=== PATIENT | male | born 1965 | race Two or more races ===

== ENCOUNTER 2024-12-25 07:45 | Inpatient (IN) | payer OTHER, MEDICARE, SELFPAY ==
[2024-12-25] VITALS (42 sets, daily range): BP systolic 98–219; BP diastolic 50–161; PULSE 68–114; RESP 12–32; TEMP 36.4–37; O2SAT 87–100; BMI 20.9
[2024-12-25] MEDS: LABETALOL INJ 5 MG/ML VIAL 20 ML 20 MG IVP (07:45)
--- NOTE | 2024-12-25 07:50 | EDNOTE_ITS ---
Neuro Symptoms Deficit-RME/HPI General Chief Complaint: Altered Mental Status Stated Complaint: ALTERED Time Seen by Provider: 12/25/24 07:48 Arrival date/time: 12/25/24 07:45 RME / HPI RME / HPI Narrative: 59 year old male with history of hypertension, diabetes, ESRD on HD T//Tue (last dialyzed 3 days ago Tuesday) presents to the ED BIBA from home for evaluation of altered mental status today. Per medics report, family were woken up by the sound of patient choking this morning. State when they arrived, patient was found laying in bed in a decorticate posture, not answering questions, and a GCS of 9. Evidently at baseline the patient is AOx4, GCS of 15, conversive, and independent in ADLs. Prehospital BS 147, blood pressure 166/94, HR 90s, saturating 98% on room air. Family denies any history of seizures. While in the ED, the patent is unable to provide any additional history due to mental status. Related Data Allergies Allergy/AdvReac Type Severity Reaction Status Date / Time No Known Allergies Allergy Verified 12/25/24 08:45 Review of Systems Review of Systems Systems Reviewed: All systems reviewed, normal except as documented ROS Unobtainable: unobtainable due to mental status Past Medical History Past Medical History CARDIAC: Positive Hypertension; Negative Congestive Heart Failure RESPIRATORY: Negative Chronic Obstructive Pulmonary Disease (COPD) GENITOURINARY: Positive Renal Disease ENDOCRINE: Negative Diabetes Mellitus Type 1 or Diabetes Mellitus Type 2 Social History SMOKING STATUS: Never smoker ED Exam Narrative Physical exam: General exam shows the patient to be confused and somewhat combative. Right pupil is irregular. Patient apparently has had surgery for glaucoma in the past. Head is normocephalic atraumatic. Heart shows tachycardic rate with regular rhythm lungs are clear to auscultation abdomen is nondistended neurologic exam shows the patient to be moving all extremities but very confused. Course Course Course Narrative: 0740: Patient evaluated in ED room 3 44: Stroke alert activated Quality Measures Suspected type of Stroke: Unknown at this time Tenecteplase given: Reason(s) TPA not given: Uncontrolled BP, Unable to determine eligibility and Siezure at onset with post-ictal neuro impairment not given stroke Orders Category Date Time Status Bedside Blood Glucose NOW Care 12/25/24 08:13 Active Manager Philosophy NOW Care 12/25/24 08:13 Active Continuous Pulse Oximetry NOW Care 12/25/24 08:13 Completed EKG (ED ONLY) *Do not use* NOW Care 12/25/24 08:13 Completed In and Out Catheter X1 Care 12/25/24 08:13 Active Insert IV NOW Care 12/25/24 08:13 Active NIH Stroke Scale now Care 12/25/24 08:13 Active NPO NOW Care 12/25/24 08:13 Active Nurse Swallow Screen x1 Care 12/25/24 08:13 Active Consult to Neurology / Tele-Neurology Routine Cons 12/25/24 08:[address] angio stroke protocol Stat Exams 12/25/24 08:[address] stroke protocol Stat Exams 12/25/24 08:02 Completed EKG (ED Only) Stat Exams 12/25/24 08:13 Draft XR chest 1V portable Stat Exams 12/25/24 08:13 Completed B-Type Natriuretic Peptide Stat Lab 12/25/24 09:06 Completed CBC Stat Lab 12/25/24 07:48 Completed Comprehensive Metabolic Panel Stat Lab 12/25/24 09:06 Completed Drug Screen,Urine Stat Lab 12/25/24 08:13 Ordered Magnesium Stat Lab 12/25/24 09:06 Completed Partial Thromboplastin Time Stat Lab 12/25/24 09:06 Completed Prothrombin Time with INR Stat Lab 12/25/24 09:06 Completed Troponin I Stat Lab 12/25/24 09:06 Completed Troponin I Stat Lab 12/25/24 11:35 Completed Urinalysis Stat Lab 12/25/24 08:13 Ordered Urine Culture Stat Lab 12/25/24 08:13 Ordered ALBUTEROL RT 3ml [Proventil Rt 3ml] Med 12/25/24 11:16 Discontinued 10 mg INH X1 ONE Calcium Gluconate 10% Inj Med 12/25/24 11:30 Discontinued 1 gm IV X1 ONE Dextrose 50% Syr [D50w Syringe Abboject] Med 12/25/24 11:16 Discontinued 50 ml IVP X1 ONE Insulin Regular Med 12/25/24 11:16 Discontinued 5 unit IV X1 ONE Labetalol IV [Trandate IV] Med 12/25/24 07:42 Discontinued 100 mg .ROUTE .STK-MED ONE Labetalol IV [Trandate IV] Med 12/25/24 07:48 Discontinued 20 mg IVP X1 ONE Labetalol IV [Trandate IV] Med 12/25/24 12:49 Discontinued 20 mg IVP X1 ONE Ondansetron Inj [Zofran Inj] Med 12/25/24 08:13 Active 4 mg IVP Q4HR PRN Sodium Bicarb 8.4% 50ml Vial* Med 12/25/24 11:16 Discontinued 50 meq IV X1 ONE Vital Signs Vital signs: Vital Signs Pulse Rate 114 H 12/25/24 07:45 Blood Pressure 219/161 H 12/25/24 07:45 Neuro Symptoms / Deficit MDM Narrative MDM Narrative:: I, Reanna Ortega, sammy scribing for and in the presence of Dr. Mosley. Stroke alert was called. Head CT was negative. Patient was moving too much to do the CT angio of the head and neck. Stroke neurology consult was obtained with Dr. Mejia. He does not believe this to be a stroke. He believes it to be a metabolic encephalopathy versus his poorly controlled hypertension. Blood pressure upon arrival was 224/123. Lab work showed the patient be hyperkalemic with a potassium of 7.6. Patient received 10 mg of nebulized albuterol, 1 amp of D50 IV, 5 units of regular insulin IV, 1000 mg of calcium gluconate IV and 1 amp of sodium bicarb IV. Patient received labetalol 20 mg IV to help lower his blood pressure. We were going to give a second dose of labetalol 20 mg IV however the patient's blood pressure started to decrease to approximately 180/100 so it was thought to be prudent to not lower the blood pressure any further at this time. [facility] too unstable for [facility]. [place] case number is [id number]. Patient data External records reviewed:: EMS form Clinical information provided by:: EMS Social determinants that could affect healthcare access:: none Patient has the following chronic illnesses:: hypertension, diabetes, ESRD on HD T//Tue (last dialyzed 3 days ago Tuesday) How is presenting disease/condition affected by chronic disease/condition?: exacerbated by Evaluation data The following diagnostics were reviewed and interpreted by me:: lab results and radiology exam(s) Lab and/or radiology exams considered but not ordered:: None Interpretation Summary: Ordering Physician: Narciso Dean MD Date of Service: 12/25/24 Procedure(s): CT stroke protocol Accession Number(s): [id number] cc: Jewel Caicedo MD; Narciso Dean MD; NO PRIMARY/FAMILY,PHYSICIAN~ Examination: CT brain head without contrast. 2-D sagittal coronal reconstructions Date and time of exam:December 25, 2024, 0806 hours INDICATIONS: Stroke alert, onset focal neurologic deficit today CTDI: vol (mGy):130 DLP: (mGycm):3085 Technique: Multiple CT axial sections of the brain have been obtained, 5 mm slice thickness. Contrast has not been administered. 2-D sagittal, coronal reconstructions have been obtained Low dose protocols were performed. One or more of the following dose reduction techniques were used; automated exposure control, adjustment of the mA and/or KV according to patient size, use of iterative reconstruction technique. Findings: No significant ventricular enlargement. Intra-axial or extra-axial hemorrhage density is not seen. No mass effect or midline shift Basal cisterns are not remarkable. Fourth ventricle is midline. Cranial vault intact. Impression: Negative for acute hemorrhage, mass effect or midline shift Dictated By: Jewel Caicedo MD Signed By: <Electronically signed by Jewel Caicedo MD in OV> 12/25/24 0833 Ordering Physician: Dorothea DURAN)Matias NP Date of Service: 12/25/24 Procedure(s): XR chest 1V portable Accession Number(s): [id number] cc: Matias Piedra NP, NP; Jewel Caicedo MD; NO PRIMARY/FAMILY,PHYSICIAN~ Examination: AP chest single view TECHNIQUE: AP portable supine chest single view Date and time: December 25, 2024 0831 hours INDICATIONS: Stroke alert FINDINGS: Mild heart failure. Mild enlargement cardiac contour Prominent vascular congestion with perihilar edema Pleural fluid along the right lateral thoracic wall Prominent osteopenia IMPRESSION: Mild heart failure Dictated By: Jewel Caicedo MD Signed By: <Electronically signed by Jewel Caicedo MD in OV> 12/25/24 0910 Medications / Prescriptions Medications or Prescriptions considered but not ordered:: None Medication administrations:: Medication Administration History Ondansetron HCl (Ondansetron Inj 2 Mg/Ml Inj 2 Ml) 4 mg IVP Q4HR PRN PRN Reason: NAUSEA OR VOMITING Stop: 01/24/25 08:12 Discontinued Medications Albuterol (Albuterol Rt 2.5 Mg/3 Ml Nebu) 10 mg INH X1 ONE Stop: 12/25/24 11:17 Last Admin: 12/25/24 11:57 Dose: 10 mg Documented By: JOSSE Calcium Gluconate (Calcium Gluconate 10% Inj 1 Gm/10 Ml Vial) 1 gm IV X1 ONE Stop: 12/25/24 11:31 Last Admin: 12/25/24 11:44 Dose: 1 gm Documented By: AMELIA Dextrose (Dextrose 50%-Water Inj 50 Ml Syringe) 50 ml IVP X1 ONE Stop: 12/25/24 11:17 Last Admin: 12/25/24 11:43 Dose: 50 ml Documented By: AMELIA Insulin Human Regular (Insulin Hum Regular 1 Unit/0.01 Ml (Per Unit)) 5 unit IV X1 ONE Stop: 12/25/24 11:17 Last Admin: 12/25/24 11:42 Dose: 5 unit Documented By: AMELIA Co-signed By: LORETTA Labetalol HCl (Labetalol Inj 5 Mg/Ml Vial 20 Ml) 20 mg IVP X1 ONE Stop: 12/25/24 07:49 Last Admin: 12/25/24 07:45 Dose: 20 mg Documented By: LORETTA Labetalol HCl (Labetalol Inj 5 Mg/Ml Vial 20 Ml) Confirm Administered Dose 100 mg .ROUTE .STK-MED ONE Stop: 12/25/24 07:43 Last Admin: 12/25/24 09:17 Dose: Not Given Documented By: LORETTA Non-Admin Reason: Override Medication Labetalol HCl (Labetalol Inj 5 Mg/Ml Vial 20 Ml) 20 mg IVP X1 ONE Stop: 12/25/24 12:50 Sodium Bicarbonate (Sodium Bicarb Inj 8.4% 1 Meq/Ml 50 Ml Vial) 50 meq IV X1 ONE Stop: 12/25/24 11:17 Last Admin: 12/25/24 11:44 Dose: 50 meq Documented By: AMELIA See above Consultations Consultation(s) initiated? (list below): Yes Consultation #1 (Physician, Specialty, Details): I spoke with teleneurologist Dr. Dean. Discussed patients PMHx, HPI, ED course, exam findings, and radiology results. States patient is not a TNK candidate. Recommends admission and CTA head/neck. Time: 08:45 Diagnosis Neuro Differential Diagnosis: subarachnoid hemorrhage, cerebrovascular accident, transient cerebral ischemia and other (seizure) Most likely diagnosis given after review of the tests above:: Hypertensive emergency Admission Indicated Admission indicated?: indicated Admission Request Was there a request for admission?: Yes Admission Attestation Admission request attestation: Discussed case with [] from Hospitalist service regarding admission. Discussed patients ED course, exam findings, labs, and radiology results. The Hospitalist [agrees,declines] to accept the patient for admission. Disposition Plan Disposition Plan: Admit Critical Care Time Critical Care Time Critical Care Time: Yes Total Critical Care Time (min.): 35 Attestation: Critical care time spent in this patient excluding other billable procedures was 35 minutes. Discharge Plan Plan Patient Disposition: Admit Acute Care w/in Hospital Prescriptions/Referrals Referrals: No Primary/Family,Physician [Primary Care Provider] - In 1 week Problem List Clinical Impression: Hypertensive emergency, Encephalopathy, Hyperkalemia, Renal failure Patient/Caregiver Discharge Instructions Print Language: Armenian Stand Alone Forms: [facility] Award Info., Patient Portal Info Letter
--- NOTE | 2024-12-25 08:02 | XR_ITS ---
Examination: CT brain head without contrast. 2-D sagittal coronal reconstructions Date and time of exam:December 25, 2024, 0806 hours INDICATIONS: Stroke alert, onset focal neurologic deficit today CTDI: vol (mGy):130 DLP: (mGycm):3085 Technique: Multiple CT axial sections of the brain have been obtained, 5 mm slice thickness. Contrast has not been administered. 2-D sagittal, coronal reconstructions have been obtained Low dose protocols were performed. One or more of the following dose reduction techniques were used; automated exposure control, adjustment of the mA and/or KV according to patient size, use of iterative reconstruction technique. Findings: No significant ventricular enlargement. Intra-axial or extra-axial hemorrhage density is not seen. No mass effect or midline shift Basal cisterns are not remarkable. Fourth ventricle is midline. Cranial vault intact. Impression: Negative for acute hemorrhage, mass effect or midline shift
--- NOTE | 2024-12-25 08:13 | EKG_ITS ---
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
--- NOTE | 2024-12-25 08:13 | XR_ITS ---
Examination: AP chest single view TECHNIQUE: AP portable supine chest single view Date and time: December 25, 2024 0831 hours INDICATIONS: Stroke alert FINDINGS: Mild heart failure. Mild enlargement cardiac contour Prominent vascular congestion with perihilar edema Pleural fluid along the right lateral thoracic wall Prominent osteopenia IMPRESSION: Mild heart failure
[2024-12-25 08:35] LABS: Basophils # (Auto) 0.1 Thou/mm3 (0.0-0.2); Basophils % (Auto) 1 % (0-2.5); Eosinophils # (Auto) 0.4 Thou/mm3 (0.0-0.5); Eosinophils % (Auto) 4 % (0-10); Hematocrit 39.8 % (41.0-53.0); Hemoglobin 13.2 g/dL (13.5-16.0); Immature Granulocytes Auto 0.03 Thou/mm3 (0.00-0.00); Lymphocytes # (Auto) 1.7 Thou/mm3 (1.0-4.8); Lymphocytes % (Auto) 17 % (10-50); Mean Corpuscular HGB Conc 33.2 g/dl (31.0-37.0); Mean Corpuscular Hemoglobin 33.9 pg (25.0-35.0); Mean Corpuscular Volume 102 fL (80-100); Monocytes # (Auto) 0.6 Thou/mm3 (0.0-0.8); Monocytes % (Auto) 7 % (0-12); Neutrophils # (Auto) 7.0 Thou/mm3 (1.8-7.7); Neutrophils % (Auto) 72 % (37-80); Nucleated Red Blood Cell # 0.00 Thou/mm3 (0.00-0.00); Nucleated Red Blood Cell % 0 /100 WBC (0); Platelet Count 242 Thou/mm3 (140-440); RDW Standard Deviation 52.8 fL (35.1-43.9); Red Blood Count 3.89 Miln/mm3 (4.50-5.90); White Blood Count 9.7 Thou/mm3 (3.8-10.6)
--- NOTE | 2024-12-25 08:55 | PD.TNEURO ---
Tele Neuro Consultation Consultation Date 12/25/24 Consultation Narrative [facility] Tele[facility]urology Consult [facility] Patient Name:???Delmar Hernandez Date of :???1965 Identification Number:??? Date of Service:???12/25/2024 07:48:35 Diagnosis:?G93.49 - Encephalopathy Multifactorial Impression: ?59 year old man with HTN, T2DM, and ESRD on iHD (last session Tuesday) for whom neurology is consulted for evaluation of stroke. LKW 0 yesterday evening. Wake up symptoms at 0717 of altered mental status. Exam currently with diffuse weakness without gaze deviation. He does have an irregularly shaped right pupil that family states is chronic. He is non verbal and not following commands. NIHSS 19. NCCT Head without acute ischemia or hemorrhage. CTA Head and Neck pending - patient currently unable to tolerate scan/unable to sit still enough for scan. OOW for thrombolytics. Overall, I suspect more of a global/diffuse COLORECTAL SURGEON process causing symptoms which can include (in order of likelihood) acute hypertensive encephalopathy, toxic/metabolic encephalopathy, focal seizure with impaired awareness, and multifocal or brainstem ischemic stroke. ? ?Recommendations: ?-q1 vitals/neurochecks ?-BP goal <180/110mmHg for now ?-BG goal <180mg/dL while admitted ?- Aspirin 300mg OH x1 in ED ?-Continue Aspirin 81mg qdaily for now ?-Atorvastatin 40mg qHS for now ?-Check LDL and A1c (goal LDL <70, goal A1c <7) ?-Check CBC, CMP, UA, UDS, EtOH level, ESR, CRP, CXR, COVID, Flu, TSH w/ FT4, B12 (goal >400), Folate, B1, ABG, and NH4. Correct any significant underlying metabolic and/or infectious abnormality identified. ?-Obtain CTA Head and Neck w/ contrast, rEEG, MRI Brain w/o contrast, TTE w/ bubble, and place on telemetry monitoring ?-PT/OT/ST consults, NPO until passes bedside swallow study ?-Neurology follow up recommended ? ? Advanced Imaging: Advanced imaging has been ordered. Results pending. Metrics: Last Known Well: 12/24/2024 21:30:00 Dispatch Time: 12/25/2024 07:48:34 Arrival Time: 12/25/2024 07:45:00 Initial Response Time: 12/25/2024 07:50:31Symptoms: AMS. Initial patient interaction: 12/25/2024 07:50:00 NIHSS Assessment Completed: 12/25/2024 07:55:22Patient is not a candidate for Thrombolytic. Thrombolytic Medical Decision: 12/25/2024 07:55:23Patient was not deemed candidate for Thrombolytic because of following reasons: LKW outside 4.[address] Head: I personally reviewed all the CT images that were available to me and it showed: no hemorrhage or obvious acute ischemia Primary Provider Notified of Diagnostic Impression and Management Plan on: 12/25/2024 08:54:43 History of Present Illness:Patient is a 59 year old Male. Patient was brought by EMS for symptoms of AMS. Delmar Hernandez is a 59 year old man with HTN, T2DM, ESRD on iHD (last session Tuesday) who presents to ED for evaluation of AMS. Symptoms noted on waking this morning (family woke him at 0717). LKW around 2130 yesterday evening. Patient's was woken by patient making a strange sound . She reached out to grab him and noted that he felt really stiff, was sweating a lot , and not responding. EMS was called and patient noted to be diffusely weak, non-verbal, and not following commands. His family endorses that patient has never suffered an episode like this before. He has not suffered any recent illness and there were no recent medication changes. He was acting at his normal neurologic baseline yesterday evening. Past Medical History: ?Hypertension ?Diabetes Mellitus Other PMH:? ESRD on iHD Medications: No Anticoagulant use? No Antiplatelet use Reviewed EMR for current medications Allergies:? Reviewed Social History: Drug Use: No Family History: There is no family history of premature cerebrovascular disease pertinent to this consultation ROS : 14 Points Review of Systems was performed and was negative except mentioned in HPI. Past Surgical History: There Is No Surgical History Contributory To Today?s Visit Examination: BP(235/130),?Pulse(80),?Blood Glucose(147) 1A: Level of Consciousness - Movements to Pain?+ 2 1B: Ask Month and Age - Aphasic?+ 2 1C: Blink Eyes & Squeeze Hands - Performs 0 Tasks?+ 2 2: Test Horizontal Extraocular Movements - Normal?+ 0 3: Test Visual Clark - No Visual Loss?+ 0 4: Test Facial Palsy (Use Grimace if Obtunded) - Normal symmetry?+ 0 5A: Test Left Arm Motor Drift - Some Effort Against Burnside?+ 2 5B: Test Right Arm Motor Drift - Some Effort Against Burnside?+ 2 6A: Test Left Leg Motor Drift - Some Effort Against Burnside?+ 2 6B: Test Right Leg Motor Drift - Some Effort Against Burnside?+ 2 7: Test Limb Ataxia (FNF/Heel-Polanco) - Does Not Understand?+ 0 8: Test Sensation - Normal; No sensory loss?+ 0 9: Test Language/Aphasia - Mute/Global Aphasia: No Usable Speech/Auditory Comprehension?+ 3 10: Test Dysarthria - Mute/Anarthric?+ 2 11: Test Extinction/Inattention - No abnormality?+ 0 NIHSS Score:?19 Pre-Morbid Modified Kiesha Scale:2 Points = Slight disability; unable to carry out all previous activities, but able to look after own affairs without assistance Spoke with :?Dr. Mosley This consult was conducted in real time using interactive audio and video technology. Patient was informed of the technology being used for this visit and agreed to proceed. Patient located in hospital and provider located at home/office setting. Patient is being evaluated for possible acute neurologic impairment and high probability of imminent or life-threatening deterioration. I spent total of 35 minutes providing care to this patient, including time for face to face visit via telemedicine, review of medical records, imaging studies and discussion of findings with providers, the patient and/or family. Dr Narciso Dean [facility] For Inpatient follow-up with [facility] physician please call [facility] at . As we are not an outpatient service for any post hospital discharge needs please contact the hospital for assistance. If you have any questions for the [facility] physicians or need to reconsult for clinical or diagnostic changes please contact us via [facility] at .
[2024-12-25 09:02] LABS: INR 1.0 (0.9-1.3); Partial Thromboplastin Time 25.6 Seconds (22.0-36.0); Prothrombin Time 11.2 Seconds (9.0-12.2)
--- NOTE | 2024-12-25 09:17 | PC.NURSE ---
PT BIBA FROM HOME, PER EMS CALLED DUE TO PT MAKING A CHOKING SOUND. ON SCENE EMS FOUND HIM TO BE ALTERED, GAVE HIM A GCS OF 9. PT IS DIALYSIS PT GOES FOR DIALYSIS TUE/THR/SAT. LIMB ALERT PLACED ON LEFT WRIST. PT IS NON-VERBAL UPON ARRIVVAL, PUPILS UNEQUAL APPEARS RIGHT PUPIL IS LARGER AND UN-REACTIVE. STROKE ALERT WAS CALLED. AND BROTHER-INLAW AT BEDSIDE TO PROVIDE INFORMATION VIA HCIN TECHNICAL PROJECT LEAD. IVP LABETALOL ADMINISTERED. AT BEDSIDE ATTENTIVE TO PT, PT ON 2L O2 VIA NC. PT RESTLESS PULLING ALL MEDICAL EQUIPMENT OFF OF HIMSELF, PUTTING LEGS THROUGH SIDE RAILS, SEIZURE PADS PLACED FOR PTS SAFETY.
[2024-12-25 09:28] LABS: B-Type Natriuretic Peptide 1075 pg/mL (0-100)
[2024-12-25 09:38] LABS: Alanine Aminotransferase 41 U/L (10-49); Albumin, Serum 4.1 gm/dL (3.5-5.0); Albumin/Globulin Ratio 1.3 (1.2-2.2); Alkaline Phosphatase 102 U/L (46-116); Anion Gap 18 (7-16); Aspartate Amino Transferase 60 U/L (0-34); BUN/Creatinine Ratio 6 Ratio (12-20); Bilirubin,Total 0.4 mg/dL (0.3-1.2); Blood Urea Nitrogen 70 mg/dL (9-23); Calcium 9.2 mg/dL (8.3-10.6); Calcium (Corrected) 9.2 mg/dL (8.5-10.1); Carbon Dioxide 21.2 mMol/L (20.0-31.0); Chloride 101 mMol/L (98-107); Estimated Creatinine Clearance 6.5 mL/min (>60); Globulin 3.1 gm/dL (2.3-3.5); Glucose 192 mg/dL (74-106); Magnesium 2.8 mg/dL (1.6-2.6); Osmolality,Calculated 304 (275-295); Sodium 140 mMol/L (136-145); Total Protein 7.2 gm/dL (5.7-8.2); eGFR 5 See Note
[2024-12-25 09:43] LABS: Potassium 7.6 mMol/L (3.4-5.1)
[2024-12-25 09:48] LABS: Creatinine (Component) 11.0 mg/dL (0.6-1.3)
[2024-12-25 09:58] LABS: Troponin I 0.096 ng/mL (0.0-0.045)
--- NOTE | 2024-12-25 10:54 | PC.NURSE ---
PT NOW ABLE TO TELL I LOVE YOU, HIS BIRTHDAY AND HER BIRTHDAY, ABLE TO TRACK YOU WITH HIS EYES. MADE AWARE OF THIS CHANGE. UPDATED BY EMS WHO HAS RETURNED THAT PT HAS HAD CATARACT SURGERY ON RIGHT EYE, THAT IS WHY IT IS DIFFERENT. REMAINS AT BEDSIDE ATTENTIVE TO PT.
[2024-12-25] MEDS: INSULIN HUM REGULAR 1 UNIT/0.01 ML (PER UNIT) 5 UNIT IV ×2 (11:42→21:06)
[2024-12-25] MEDS: DEXTROSE 50%-WATER INJ 50 ML SYRINGE IVP ×2 (11:43→21:01)
[2024-12-25] MEDS: SODIUM BICARB INJ 8.4% 1 mEq/ML 50 ML VIAL 50 MEQ IV (11:44)
[2024-12-25] MEDS: CALCIUM GLUCONATE 10% INJ 1 GM/10 ML VIAL IV (11:44)
[2024-12-25] MEDS: ALBUTEROL RT 2.5 MG/3 ML NEBU 10 MG INH (11:57)
[2024-12-25 12:10] LABS: Troponin I 0.173 ng/mL (0.0-0.045)
--- NOTE | 2024-12-25 12:18 | PC.CC ---
Addendum entered by Linda Nj 12/25/24 13:11: ASW contacted [facility] [phone] and spoke with Sanjuana to ask for the pts AUTH, as he is a [place] pt currently in a non [place] hospital. Silk Screen Repairer was provided AUTH [id number]. Addendum entered by Linda Nj 12/25/24 12:47: Per ER provider, [place] medical provider has made contact with him regarding the pt. See ER providers notes. Original Note: GUME Nj was informed that pt is a [place] pt and ER provider is looking to admit the pt. Per scribjose, pt is not stable to transfer at this point and ER provider is seeking to admit pt. ASW contacted [facility] notification at [phone] and reported that one of their pts is at the ER. After a series of questions asked by Ramez, senior mortgage underwriter was informed that out ER provider will receive a call from one of their medical providers to staff the case. EOC.
--- NOTE | 2024-12-25 14:25 | ESHP_ITS ---
<Statement entered by Cornelius Russo MD - 12/25/24 21:11> Patient seen and examined at bedside, no acute overnight events. I discussed and supervised with the internist physician who took care of this patient. I personally saw and examined the patient. I agree with most of the assessment and plan. Patient presented with AMS, HTN with SBP 220. Received 20 mg labetalol IV, with improvement in mentation and blood pressure. Acute encephalopathy likely due to HTN emergency vs less likely stroke. CT head negative, stroke work up pending. PRN hydralazine ordered. Patient has ESRD, scheduled for dialysis today, noted to have significant hyperkalemia, creatinine elevation. Nephro consulted for urgent hemodialysis. Troponin slightly elevated, possibly demand ischemia, will trend. Plan of care discussed with attending Dr. Avila. Cornelius Russo MD PGY-2 Documentation for date of: 12/25/24 HPI History of Present Illness History of present illness: History stated analysis 59-year-old gentleman with a history of type 2 diabetes on insulin, ESRD on dialysis Tuesday (he missed HD today, pt reports that he makes some urine), who presents to the emergency department with altered mental status. His last known normal is unknown. The patient is visiting family in the area who noted that yesterday fluids normal at dinnertime but this morning he was altered and confused. According to the patient nothing like this has ever happened in the past Patient reportedly takes medications as prescribed. Patient denies any fever or chills chest pain abdominal pain no dysuria no increased frequency of urination no shortness of breath per nephro note: LKAW 12/24 at 21: 30. found patient in bed making choking noises at 7: 17 a.m. Patient was nonresponsive and stiff in all extremities. Paramedics were called, GCS 9, glucose 147, BP 166/94, HR 90, SpO2 98% on room air. BP on arrival to ED 224/123. In the ED patient continued to be unresponsive, given albuterol nebulized 10 mg, 1 amp D50 IV 5 units of regular insulin IV 1000 mg calcium gluconate IV, 1 amp sodium bicarb IV, labetalol 20 mg IV x 1. Stroke alert was called, NIHSS 19, CT head without contrast negative for acute hemorrhage. CTA unable to be obtained due to patient not being able to sit for that long. ED course: BP elevated in ed at 220s, and altered, not responding to questions appropriately Dx * EKG, peaked T waves * BUN elevated, creatinine elevated, potassium elevated * NCHCT; negative for acute hemorrage * pending CTA given pt unable to tolerate length of procedure * consult tele neuology * Tx * albuterol * 1 am d50 IV * 5 unitis regular insulin IV * 1000 mg calcium gluconate, * 1 amp bicarb * IV labetalol 1x 20 mg, with decrease in SBP to 180s Exam Vital Signs Temp Pulse Resp BP Pulse Ox O2 Del Method O2 Flow Rate 98.2 F 80 20 171/94 H 98 Nasal Cannula 2 12/25/24 12:01 12/25/24 12:56 12/25/24 12:01 12/25/24 12:56 12/25/24 12:01 12/25/24 12:01 12/25/24 12:01 Narrative Exam GENERAL: no acute distress, AAO x2 (pt remains confused about why he is in the hospital, comfortably laying in bed HEENT: Head AT/ NC. Mucous membranes moist. one pupil bigger than the other (w hx of surgery to R eye) NECK: Supple, no lymphadenopathy, no carotid bruits. CARDIOVASCULAR: RRR. Normal S1/S2, No m/r/g. No pitting edema of bilateral LEs. RESPIRATORY: CTAB. No wheezing, rhonchi, crackles. GASTROINTESTINAL: Abdomen soft, non tender no palpable masses. Bowel sounds present MUSCULOSKELETAL:? No cyanosis or edema, no visible joint swelling. L arm fistula, palpable thrill wo signs of bleeding NEUROLOGICAL: CN II-XII grossly intact. No focal deficits. Sensation intact, symmetric.pt is confused, one large pupil hx of eye surgery on R know. PSYCHIATRIC: Awake and alert, not agitated, normal mood and affect. SKIN: No obvious rashes, no jaundice, normal turgor. Results: Labs 12/27/24 04:46 12/27/24 04:46 Labs: Short CBC 12/25/24 Range/Units 07:48 WBC 9.7 (3.8-10.6) Thou/mm3 Hgb 13.2 L (13.5-16.0) g/dL Hct 39.8 L (41.0-53.0) % Plt Count 242 (140-440) Thou/mm3 BMP 12/25/24 09:06 Sodium 140 Potassium 7.6 H* Chloride 101 Carbon Dioxide 21.2 BUN 70 H Creatinine 11.0 H* Glucose 192 H Calcium 9.2 Cardiac Enzymes 12/25/24 12/25/24 Range/Units 09:06 11:35 Troponin I 0.096 H* 0.173 H* (0.0-0.045) ng/mL Liver Function 12/25/24 Range/Units 09:06 Total Bilirubin 0.4 (0.3-1.2) mg/dL AST 60 H (0-34) U/L ALT 41 (10-49) U/L Alkaline Phosphatase 102 (46-116) U/L Albumin 4.1 (3.5-5.0) gm/dL Quality Measures Quality Measures stroke Suspected type of Stroke: Unknown at this time Tenecteplase given: Reason(s) Tenecteplase not given: Uncontrolled BP, Unable to determine eligibility and Siezure at onset with post-ictal neuro impairment not given Rehab services: PT evaluation ordered and Speech Language Pathology eval ordered VTE Prophylaxis: pharmaceutical Antithrombotic by day 2:: ordered Statin ordered: <75 y/o high intensity dose Anticoagulation ordered for A-fib or flutter (current or hx): ordered Medications Home Medications and Allergies Home Medications ?Medication ?Instructions ?Recorded ?Confirmed ?Type dorzolamide 22.3 mg-timolol 6.8 ophthalmic (eye) 12/26 History mg/mL eye drops latanoprost 0.005 % eye drops 1 drp Right eye BID 12/1112/27/24 History amlodipine 5 mg tablet 5 mg PO BID 12/27/24 5 History vitamin B complex-vitamin C-folic 1 tab PO QDAY 12/27/24 History acid 0.8 mg tablet (Nephro-Rodolfo) Allergies Allergy/AdvReac Type Severity Reaction Status Date / Time No Known Allergies Allergy Verified 12/25/24 08:45 Visit Medications Ondansetron HCl (Ondansetron Inj 2 Mg/Ml Inj 2 Ml) 4 mg IVP Q4HR PRN PRN Reason: NAUSEA OR VOMITING Stop: 01/24/25 08:12 Discontinued Medications Albuterol (Albuterol Rt 2.5 Mg/3 Ml Nebu) 10 mg INH X1 ONE Stop: 12/25/24 11:17 Last Admin: 12/25/24 11:57 Dose: 10 mg Calcium Gluconate (Calcium Gluconate 10% Inj 1 Gm/10 Ml Vial) 1 gm IV X1 ONE Stop: 12/25/24 11:31 Last Admin: 12/25/24 11:44 Dose: 1 gm Dextrose (Dextrose 50%-Water Inj 50 Ml Syringe) 50 ml IVP X1 ONE Stop: 12/25/24 11:17 Last Admin: 12/25/24 11:43 Dose: 50 ml Insulin Human Regular (Insulin Hum Regular 1 Unit/0.01 Ml (Per Unit)) 5 unit IV X1 ONE Stop: 12/25/24 11:17 Last Admin: 12/25/24 11:42 Dose: 5 unit Labetalol HCl (Labetalol Inj 5 Mg/Ml Vial 20 Ml) 20 mg IVP X1 ONE Stop: 12/25/24 07:49 Last Admin: 12/25/24 07:45 Dose: 20 mg Labetalol HCl (Labetalol Inj 5 Mg/Ml Vial 20 Ml) 20 mg IVP X1 ONE Stop: 12/25/24 12:50 Last Admin: 12/25/24 12:56 Dose: Not Given Sodium Bicarbonate (Sodium Bicarb Inj 8.4% 1 Meq/Ml 50 Ml Vial) 50 meq IV X1 ONE Stop: 12/25/24 11:17 Last Admin: 12/25/24 11:44 Dose: 50 meq Assessment & Plan Plan Mr. Paul is a 59-year-old gentleman with type 2 diabetes on insulin, hypertension, ESRD on dialysis(Tuesday) who has been receiving hemodialysis regularly, who presents to the emergency department for altered mental status found to have hypertensive emergency SBP to the 220s, who is mental status improved post antihypertensives #Acute ischemic Stroke r/o Patient was not deemed a candidate for tPA because last known well was greater than 4.5 hours no focal neurological deficits, no wkness or facial droop, pt doesnt know why he is in the hospital, nor does he remember when he was last normal NIHSS score of 19 Dx * NCHCT-no acute intracranial findings * CTA head neck: Patient unable to tolerate imaging * Brain MRI, follow-up tomorrow * Echo: Normal left ventricular size and function. Estimated EF at 55-60%. Grade I diastolic dysfunction. Normal RV size and systolic function. Mild to moderate MAC. Trace MR and TR.No pericardial effusion. * A1c: 5.2 * TSH: Elevated * Lipid panel, Cholesterol 160, LDL 102, triglycerides 99 * Every 4 hours neuro checks * Telemetry neurology consulted recommends; admission * In-house neurologist consulted: Dr. Miguel, appreciate recs * Consult physical therapy * Consult speech Tx * ASA 81 mg daily * APAP 650 to avoid fevers * Clopidogrel 75 mg daily * Atorvastatin 40 mg at bedtime * APAP 650 mg every 6hrs as needed * Hydralazine 10 mg every 8 hours as needed for SBP greater than 180 * Keep euglycemic * Head a bed 30 degrees * Permissive hypertension in the first 48 hours continue to hold home antihypertensives # Encephalopathy secondary to hypertensive emergency #Hypertensive emergency pts AMS improved after iv labetalol. plan to maintain BP parameters for potetial stroke, see above. Dx - Every 4 hours vital checks - q4 vitals check Tx -One-time labetalol IV push in the ED -permissive htn <180, give hydral # ESRD on hemodialysis (TThSat) #Electrolyte deragement 2/2 missed HD -resolving following emergent HD today #Hyper Kalemia #hyper magn #FIDELIA iso missed HD pt followed by senait, and has been on HD for the past 5 years, Patient's last hemodialysis session on Tuesday, missed today, consulted nephrology for stat HD today, In ED: BUN 70, Cr 11 Dx - daily CMP, mg, phos Tx - emergent HD today -relete electrolytes as needed #elevated troponin- downtrending Dx - troponin q6hr - CMP # Macrocytic anemia Initial hemoglobin 13.2, hematocrit 39.8, MCV 102 Dx - daily cbc Tx - CTM - transfuse if < 7 #HLD - see statin recs above, see acute ischemic workup Dispo: Home, pending PT eval Diet: pending speech Bowel Reg: not indicated VTE ppx: hearin 5000 q12 GI ppx: pantoprazole Code status: full Case discussed with my senior resident Dr. Russo Case discussed with my attending Dr. Margarita Sheffield MD PGY-1 Attending Provider Attestation/Addendum I attest that I was physically present for the evaluation, physical examination, lab and imaging review of the patient with the residents. I discussed the case with the residents and agree with the findings and plans of care as documented above. After examination of the patient and review of the clinical data I feel that this patient needs admission to the hospital for further treatment/evaluation. Terell Avila MD
--- NOTE | 2024-12-25 14:29 | PD.RESCONSUL ---
HPI Data of Consult Primary Care Provider: Physician No Primary/Family Consult Narrative History of present illness: Mr. Hernandez is a 86 y/o male with PMH hypertension, T2DM, ESRD on HD (last hemodialysis session Tuesday, missed HD today on 12/25) who presented to the ED with altered mental status. LKAW 12/24 at 21: 30. found patient in bed making choking noises at 7: 17 a.m. Patient was nonresponsive and stiff in all extremities. Paramedics were called, GCS 9, glucose 147, BP 166/94, HR 90, SpO2 98% on room air. BP on arrival to ED 224/123. In the ED patient continued to be unresponsive, given albuterol nebulized 10 mg, 1 amp D50 IV 5 units of regular insulin IV 1000 mg calcium gluconate IV, 1 amp sodium bicarb IV, labetalol 20 mg IV x 1. Stroke alert was called, NIHSS 19, CT head without contrast negative for acute hemorrhage. CTA unable to be obtained due to patient not being able to sit for that long. Today patient was evaluated at bedside with contributing to history. Patient reports that does not remember waking up this morning or the previous night. He denies headache, acute visual changes nausea, vomiting, abdominal pain. Patient reports that his blood pressure at home is usually normal but can increase to systolic BP 160-170 during which he does have symptoms including headache. He does not remember having headache or other acute symptoms of hypertensive emergency this morning. cc:: cc: Review of Systems Review of Systems Narrative Review of Systems: 14 point review of systems negative other than HPI Exam Vital Signs Temp Pulse Resp BP Pulse Ox O2 Del Method O2 Flow Rate 98.2 F 80 20 171/94 H 98 Nasal Cannula 2 12/25/24 12:01 12/25/24 12:56 12/25/24 12:01 12/25/24 12:56 12/25/24 12:01 12/25/24 12:01 12/25/24 12:01 Narrative Exam General: No acute distress, well nourished Eye: PERRL, EOMI, normal conjunctiva, no scleral icterus HENT: Normocephalic, atraumatic, hearing intact to conversation at normal volume, moist oral mucosa Neck: Supple, non-tender, no JVD, no lymphadenopathy Lungs: Non-labored respirations, symmetric chest rise Heart: Peripheral pulses intact bilaterally Abdomen: Soft, non-tender, non-distended Musculoskeletal: Normal range of motion and strength Skin: Skin is warm, dry, no rashes or lesions. Fistula for HD on left forearm Psychiatric: Cooperative, appropriate mood and affect Neurologic: Mental status: Orientation: AO x 2 Communication: Patient is cooperative and can follow simple instructions Language: Speech fluent, normal rate and volume, comprehension intact Cranial nerves: CN II: Visual muniz intact CN III: R pupil > L pupil size (chronic anisocoria 2/2 glaucoma surgery 5 years ago) CN III, IV, : No gaze deviation, no nystagmus Horizontal pursuit: intact Vertical pursuit: intact Ptosis: none CN V: Facial sensation to light touch intact bilaterally at the forehead, cheeks, and jaw line CN VII: Face symmetric, no facial droop appreciated CN VIII: Able to hear and respond to conversation at normal volume, intact to finger rub CN IX, X: Palate elevation symmetric, uvula midline CN XI: Head turn and shoulder shrug strong, symmetric bilaterally CN XII: Normal tongue protrusion without deviation, no fasciculations Motor: Normal bulk and tone No atrophy No abnormal movements or fasciculations Muscle strength: Shoulder abduction: R 5/5 L 5/5 Elbow flexion: R 5/5 L 5/5 Elbow extension: R 5/5 L 5/5 Hip flexion: R 5/5 L 5/5 Hip extension: R 5/5 L 5/5 Knee flexion: R 5/5 L 5/5 Knee extension: R 5/5 L 5/5 Sensory: RUE: Light touch intact LUE: Light touch intact RLE: Light touch intact LLE: Light touch intact Reflexes: Triceps (C7-8): R 2+ L 2+ Patellae (L3-4): R 2+ L 2+ Cerebellum: RUE: No dysmetria (finger to nose) LUE: No dysmetria (finger to nose) Gait: Normal gait and stride length, normal pivot Results Labs 12/26/24 05:10 12/26/24 05:10 Labs: Short CBC 12/25/24 Range/Units 07:48 WBC 9.7 (3.8-10.6) Thou/mm3 Hgb 13.2 L (13.5-16.0) g/dL Hct 39.8 L (41.0-53.0) % Plt Count 242 (140-440) Thou/mm3 BMP 12/25/24 09:06 Sodium 140 Potassium 7.6 H* Chloride 101 Carbon Dioxide 21.2 BUN 70 H Creatinine 11.0 H* Glucose 192 H Calcium 9.2 Cardiac Enzymes 12/25/24 12/25/24 Range/Units 09:06 11:35 Troponin I 0.096 H* 0.173 H* (0.0-0.045) ng/mL Liver Function 12/25/24 Range/Units 09:06 Total Bilirubin 0.4 (0.3-1.2) mg/dL AST 60 H (0-34) U/L ALT 41 (10-49) U/L Alkaline Phosphatase 102 (46-116) U/L Albumin 4.1 (3.5-5.0) gm/dL Quality Measures Quality Measures stroke Suspected type of Stroke: Unknown at this time Tenecteplase given: Reason(s) Tenecteplase not given: Uncontrolled BP, Unable to determine eligibility and Siezure at onset with post-ictal neuro impairment not given Rehab services: PT evaluation ordered VTE Prophylaxis: not ordered Antithrombotic by day 2:: not indicated (describe) Statin ordered: <75 y/o high intensity dose Anticoagulation ordered for A-fib or flutter (current or hx): not indicated Medications Home Medications and Allergies Allergies Allergy/AdvReac Type Severity Reaction Status Date / Time No Known Allergies Allergy Verified 12/25/24 08:45 Visit Medications Ondansetron HCl (Ondansetron Inj 2 Mg/Ml Inj 2 Ml) 4 mg IVP Q4HR PRN PRN Reason: NAUSEA OR VOMITING Stop: 01/24/25 08:12 Discontinued Medications Albuterol (Albuterol Rt 2.5 Mg/3 Ml Nebu) 10 mg INH X1 ONE Stop: 12/25/24 11:17 Last Admin: 12/25/24 11:57 Dose: 10 mg Calcium Gluconate (Calcium Gluconate 10% Inj 1 Gm/10 Ml Vial) 1 gm IV X1 ONE Stop: 12/25/24 11:31 Last Admin: 12/25/24 11:44 Dose: 1 gm Dextrose (Dextrose 50%-Water Inj 50 Ml Syringe) 50 ml IVP X1 ONE Stop: 12/25/24 11:17 Last Admin: 12/25/24 11:43 Dose: 50 ml Insulin Human Regular (Insulin Hum Regular 1 Unit/0.01 Ml (Per Unit)) 5 unit IV X1 ONE Stop: 12/25/24 11:17 Last Admin: 12/25/24 11:42 Dose: 5 unit Labetalol HCl (Labetalol Inj 5 Mg/Ml Vial 20 Ml) 20 mg IVP X1 ONE Stop: 12/25/24 07:49 Last Admin: 12/25/24 07:45 Dose: 20 mg Labetalol HCl (Labetalol Inj 5 Mg/Ml Vial 20 Ml) 20 mg IVP X1 ONE Stop: 12/25/24 12:50 Last Admin: 12/25/24 12:56 Dose: Not Given Sodium Bicarbonate (Sodium Bicarb Inj 8.4% 1 Meq/Ml 50 Ml Vial) 50 meq IV X1 ONE Stop: 12/25/24 11:17 Last Admin: 12/25/24 11:44 Dose: 50 meq Assessment & Plan Plan # Altered mental status, improved LKW 7/14 at 21: 30 Initial presentation: Unresponsive, GCS 9. Glucose 147. SpO2 98% RA. Initial BP en route to hospital 166/94, BP on arrival 224/123. Managed with labetalol IV Troponin: 0.096 elevated--> 0.173, BNP elevated [address] head without contrast: Negative for acute hemorrhage, midline shift, mass effect. Poor quality CT Unable to get CTA due to patient unable to sit for CT EKG: NSR, heart rate 77, QTc 498 DDx: hypertensive emergency, metabolic encephalopathy (ESRD on HD), Plan: - BP management per primary - labetalol - Pending UA, UDS, TTE - Pending Spot EEG - Pending MRI brain w/o (2/2 ESRD) # Hypertension Plan: - Management per primary # Type 2 diabetes mellitus Plan: - Management per primary # ESRD on hemodialysis Patient's last hemodialysis session on Tuesday In ED: BUN 70, Cr 11 Nephrology on board Plan: - Management per primary, nephrology # Macrocytic anemia Initial hemoglobin 13.2, hematocrit 39.8, MCV 102 Plan: - Management per primary -CTM with daily CBC Plan discussed with Dr. Lamont Schwartz, PGY1 Attending Provider Attestation/Addendum I personally have seen and examined the patient at the bedside and I agreed with the resident's findings, assessment and plan of care. Follow-up with MRI brain. His presentation of altered mental status and elevated blood pressure over 200 systolic: Suggestive of heights of urgent/hypertensive encephalopathy. Symptoms have resolved and the patient is back to baseline without any focal neurological deficit.
--- NOTE | 2024-12-25 15:09 | ECHO_ITS ---
Transthoracic Echo Report Ht (in): 68 Wt (lb): 138 Exam Location: Echo Lab Status: Inpatient [employer] Reverser: Izzy Wells Indications: Procedure Performed: BP: 120 / 72 HR: 72 Technical Quality: Technically difficult study MEASUREMENTS (Male / Female) Normal Values 2D ECHO LV Diastolic Diameter PLAX 4.1 cm 4.2 - 5.9 / 3.9 - 5.3 cm LV Systolic Diameter PLAX 2.8 cm IVS Diastolic Thickness 0.9 cm 0.6 - 1.0 / 0.6 - 0.9 cm LVPW Diastolic Thickness 1.1 cm 0.6 - 1.0 / 0.6 - 0.9 cm LV Relative Wall Thickness 0.5 LV Ejection Fraction MOD BP 49.6 % >= 55 % LV Cardiac Index MOD BP 3034.0 cm?/min?m? LV Ejection Fraction MOD 4C 56.0 % LV Cardiac Index MOD 4C 3171.4 cm?/min?m? LV Ejection Fraction 4C AL 57.1 % LV Cardiac Index 4C AL 3335.0 cm?/min?m? LV Ejection Fraction MOD 2C 45.1 % LV Cardiac Index MOD 2C 2888.4 cm?/min?m? LV Ejection Fraction 2C AL 47.9 % LV Cardiac Index 2C AL 3108.2 cm?/min?m? LA Volume Index 37.8 cm?/m? 16 - 28 cm?/m? M-MODE Aortic Root Diameter MM 2.8 cm LA Systolic Diameter MM 3.5 cm LA Ao Ratio MM 1.3 AV Cusp Separation MM 1.3 cm DOPPLER AV Peak Velocity 143.0 cm/s AV Peak Gradient 8.2 mmHg AV Mean Gradient 4.0 mmHg AV Velocity Time Integral 25.6 cm LVOT Peak Velocity 114.8 cm/s LVOT Peak Gradient 5.3 mmHg LVOT Velocity Time Integral 23.8 cm MV Area PHT 3.6 cm? Mitral E Point Velocity 77.1 cm/s Mitral A Point Velocity 127.0 cm/s Mitral E to A Ratio 0.6 LV E' Lateral Velocity 4.9 cm/s Mitral E to LV E' Lateral Ratio 15.7 LV E' Septal Velocity 3.3 cm/s Mitral E to LV E' Septal Ratio 23.7 PV Peak Velocity 152.0 cm/s PV Peak Gradient 9.2 mmHg FINDINGS Left Ventricle Normal left ventricular size, wall thickness. The ejection fraction is visually estimated at 55 %. There is grade I diastolic dysfunction of the left ventricle (impaired relaxation pattern). Right Ventricle The right ventricle is normal in size and systolic function. Left Atrium The left atrium is normal by two-dimensional, color flow and Doppler imaging with no structural abnormalities, no thrombus formation present. Right Atrium The right atrium is normal by two-dimensional imaging, color flow and Doppler imaging with no structural abnormalities, no thrombus formation present. Atrial Septum The interatrial septum appears normal with no evidence of a shunt. Aorta The aorta is normal by two-dimensional, color flow and Doppler interrogation. Mitral Valve The mitral valve is normal by two-dimensional, color flow and Doppler interrogation. There is no significant mitral valve regurgitation, stenosis or prolapse. Calcification of the mitral valve leaflets. Aortic Valve The aortic valve is trileaflet and normal by two-dimensional, color flow and Doppler interrogation. There is no significant aortic valve regurgitation. Tricuspid Valve The tricuspid valve is normal by two-dimensional, color flow and Doppler interrogation. There is no significant tricuspid valve regurgitation. Pulmonic Valve The pulmonic valve is not well visualized. There is no significant pulmonic valve regurgitation. Vessels The pulmonary artery appears normal. The inferior vena cava pulmonary and hepatic veins appear normal. Pericardium The pericardium is normal by two-dimensional imaging. There is no significant pericardial effusion. CONCLUSIONS Indication: stroke r/o Negative bubble study with no PFO/ASD. Consider SHANNA if clinically high index of suspicion of cardioembolic stroke. Normal left ventricular size and function. Estimated EF at 55-60%. Grade I diastolic dysfunction. Normal RV size and systolic function. Mild to moderate MAC. Trace MR and TR.No pericardial effusion. Job Wheeler (Electronically Signed) Final Date: 25 December 2024 21:34
--- NOTE | 2024-12-25 15:11 | ESCONSULT_ITS ---
HPI Data of Consult Consult date: 12/25/24 Requesting Physician: Terell Avila MD Admitting Provider: Terell Avila MD Attending Provider: Terell Avila MD Primary Care Provider: Physician No Primary/Family Consult Narrative Reason for consult: ESRD, need for emergent HD History of present illness: Delmar Hernandez is 59 yr male with PMH of HTN, ESRD on HD T/TH/Tue, T2DM presenting to [facility] today form home after family noticed him making choking like sound. Stroke workup was initiated upon arrival. LKW 2130 yesterday evening. NIHSS score by neuro tele was 19. At beside, he was AOx3 with no weakness. Nephrology was consulted for emergent HD. 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 States that he does not have much urine output at home and there is positive family history of kidney disease in his mother. She did require hemodialysis. Patient has resistant hypertension on three agents including hydralazine 75 mg TID, amlodipine 5mg BID, lisinopril 20 Mg BID with pressure ranging 150-160 at home. Blood pressure on arrival was 219/161, tachycardia 114, afebrile. Hemoglobin 13.2, MCV 102, sodium 140, hyperkalemia with potassium 7.6, AG 18, BUN 70, creatinine 11.0, GFR 5, glucose 192, calcium 9.2, magnesium 2.8, mildly elevated troponins 0.173, elevated BNP 1075. He does not appear to be fluid overloaded on exam. HD access site through left AV fistula. Fistula site no evidence of bleeding with palpable thrill. He denies any SOB, chest pain, headaches, lower extremity swelling. Nephrology was consulted for emergent HD. cc:: cc: Terell Avila MD Review of Systems Review of Systems Systems Reviewed: All systems reviewed, normal except as documented Exam Vital Signs Temp Pulse Resp BP Pulse Ox O2 Del Method O2 Flow Rate 98.2 F 80 20 171/94 H 98 Nasal Cannula 2 12/25/24 12:01 12/25/24 12:56 12/25/24 12:01 12/25/24 12:56 12/25/24 12:01 12/25/24 12:01 12/25/24 12:01 Narrative Exam General: Middle aged male, No acute distress, cooperative HEENT: NCAT, No JVD noted. Mucosa dry. Pupils are equal and reactive to light bilaterally Cardiovascular: Normal S1 and S2. Regular rate and rhythm. Respiratory: Lungs are clear to auscultation bilaterally. No wheezing or crackles heard. Abdomen: Soft, nontender, not distended, normal bowel sounds. Skin: Warm to touch, dry, no rashes noted Musculoskeletal: No gross injuries. Able to move all 4 extremities. No pitting edema, left AV fistula with palpable thrill Neuro: Alert and oriented x3. No focal neuro deficits. Psych: Normal affect and mood Results Labs 12/25/24 07:48 12/25/24 19:50 Labs: Short CBC 12/25/24 Range/Units 07:48 WBC 9.7 (3.8-10.6) Thou/mm3 Hgb 13.2 L (13.5-16.0) g/dL Hct 39.8 L (41.0-53.0) % Plt Count 242 (140-440) Thou/mm3 BMP 12/25/24 09:06 Sodium 140 Potassium 7.6 H* Chloride 101 Carbon Dioxide 21.2 BUN 70 H Creatinine 11.0 H* Glucose 192 H Calcium 9.2 Cardiac Enzymes 12/25/24 12/25/24 Range/Units 09:06 11:35 Troponin I 0.096 H* 0.173 H* (0.0-0.045) ng/mL Liver Function 12/25/24 Range/Units 09:06 Total Bilirubin 0.4 (0.3-1.2) mg/dL AST 60 H (0-34) U/L ALT 41 (10-49) U/L Alkaline Phosphatase 102 (46-116) U/L Albumin 4.1 (3.5-5.0) gm/dL Quality Measures Quality Measures stroke Suspected type of Stroke: Unknown at this time Tenecteplase given: Reason(s) Tenecteplase not given: Uncontrolled BP, Unable to determine eligibility and Siezure at onset with post-ictal neuro impairment not given Rehab services: Speech Language Pathology eval ordered VTE Prophylaxis: not ordered Antithrombotic by day 2:: not indicated (describe) Statin ordered: not ordered Anticoagulation ordered for A-fib or flutter (current or hx): not indicated Medications Home Medications and Allergies Allergies Allergy/AdvReac Type Severity Reaction Status Date / Time No Known Allergies Allergy Verified 12/25/24 08:45 Visit Medications Ondansetron HCl (Ondansetron Inj 2 Mg/Ml Inj 2 Ml) 4 mg IVP Q4HR PRN PRN Reason: NAUSEA OR VOMITING Stop: 01/24/25 08:12 Discontinued Medications Albuterol (Albuterol Rt 2.5 Mg/3 Ml Nebu) 10 mg INH X1 ONE Stop: 12/25/24 11:17 Last Admin: 12/25/24 11:57 Dose: 10 mg Calcium Gluconate (Calcium Gluconate 10% Inj 1 Gm/10 Ml Vial) 1 gm IV X1 ONE Stop: 12/25/24 11:31 Last Admin: 12/25/24 11:44 Dose: 1 gm Dextrose (Dextrose 50%-Water Inj 50 Ml Syringe) 50 ml IVP X1 ONE Stop: 12/25/24 11:17 Last Admin: 12/25/24 11:43 Dose: 50 ml Epoetin Ryan (Epoetin Ryan-Epbx Inj 10,000 Unit/Ml Vial (Esrd)) 10,000 unit SC X1 ONE Stop: 12/25/24 14:51 Insulin Human Regular (Insulin Hum Regular 1 Unit/0.01 Ml (Per Unit)) 5 unit IV X1 ONE Stop: 12/25/24 11:17 Last Admin: 12/25/24 11:42 Dose: 5 unit Labetalol HCl (Labetalol Inj 5 Mg/Ml Vial 20 Ml) 20 mg IVP X1 ONE Stop: 12/25/24 07:49 Last Admin: 12/25/24 07:45 Dose: 20 mg Labetalol HCl (Labetalol Inj 5 Mg/Ml Vial 20 Ml) 20 mg IVP X1 ONE Stop: 12/25/24 12:50 Last Admin: 12/25/24 12:56 Dose: Not Given Sodium Bicarbonate (Sodium Bicarb Inj 8.4% 1 Meq/Ml 50 Ml Vial) 50 meq IV X1 ONE Stop: 12/25/24 11:17 Last Admin: 12/25/24 11:44 Dose: 50 meq Assessment & Plan Plan Delmar Hernandez is 59 yr male with PMH of HTN, ESRD on HD T//Tue, T2DM presenting to [facility] ED today form home after family noticed him making choking like sound. Stroke workup was initiated upon arrival. LKW 2130 yesterday evening. NIHSS score by neuro tele was 19. Nephrology was consulted for emergent HD. 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 Patient visiting his family. Most likely hypertensive nephropathy but patient has denied getting biopsy in the past. Patient has resistant hypertension on three agents including hydralazine 75 mg TID, amlodipine 5mg BID, lisinopril 20 Mg BID with pressure ranging 150-160 at home. Hemoglobin 13.2, MCV 102, sodium 140, hyperkalemia with potassium 7.6, AG 18, BUN 70, creatinine 11.0, GFR 5, glucose 192, calcium 9.2, magnesium 2.8 BP on admission 219/161. -start emergent HD -renally dose medications -renal diet -daily CMP #Work up acute CVA #T2DM -per primary care team The patient's management plan was discussed with my attending physician Dr. Coello. Theresa Stoner, PGY-2 Attending Provider Attestation/Addendum Patient seen and examined with resident physician Dr. Stoner. Note reviewed, agree with findings and recommendations. Patient visiting his family. From out of town. On dialysis for the last 5 years. He is a TTS schedule patient. Patient currently seen on dialysis. Tolerating dialysis without any problems. Hemodialysis for 3 hours, 2K, ultrafiltration 2-3 L, Epogen 6000, no heparin ordered. Plan of care discussed with the dialysis nurse. Please see dialysis flowsheet for further details. Thank you Terell for allowing me to participate in the care of Mr. Hernandez
[2024-12-25 15:30] LABS: Glucose Estimated Average 103 mg/dL (80-131); Hemoglobin A1C 5.2 % Hgb (4.8-6.0)
[2024-12-25 15:34] LABS: Cardiac Risk Estimate 4.2 RATIO (4.0-6.7); Cholesterol 160 mg/dL (132-200); HDL Cholesterol 38 mg/dL (40-60); LDL Cholesterol,Calculated 102 mg/dL (0-130); Thyroid Stimulating Hormone 5.67 uIU/mL (0.55-4.78); Triglycerides 99 mg/dL (30-150)
[2024-12-25 17:59] LABS: Troponin I 0.361 ng/mL (0.0-0.045)
--- NOTE | 2024-12-25 18:24 | PC.NURSE ---
Pt continues in dialysis at this time. Lab notified of critical lab of troponins at 0.361 Md Ramírez notified per MD will continue with a next draw for trop at [id number]
--- NOTE | 2024-12-25 18:55 | PC.NURSE ---
Pt arrived from dialysis at change of shift report given to Prisca GROVE to continue plan of care.
[2024-12-25] MEDS: HEPARIN SOD INJ 5000 UNIT/ML VIAL SC (20:15)
[2024-12-25 20:25] LABS: Anion Gap 15 (7-16); BUN/Creatinine Ratio 5 Ratio (12-20); Blood Urea Nitrogen 37 mg/dL (9-23); Calcium 9.7 mg/dL (8.3-10.6); Carbon Dioxide 25.6 mMol/L (20.0-31.0); Chloride 98 mMol/L (98-107); Estimated Creatinine Clearance 10.5 mL/min (>60); Glucose 109 mg/dL (74-106); Osmolality,Calculated 287 (275-295); Potassium 5.8 mMol/L (3.4-5.1); Sodium 139 mMol/L (136-145); eGFR 9 See Note
[2024-12-25 20:27] LABS: Creatinine (Component) 6.8 mg/dL (0.6-1.3)
[2024-12-25 23:32] LABS: Troponin I 0.262 ng/mL (0.0-0.045)
[2024-12-26] VITALS (22 sets, daily range): BP systolic 88–201; BP diastolic 59–109; PULSE 7–88; RESP 11–20; TEMP 36.2–37.1; O2SAT 94–99; BMI 21.7
--- NOTE | 2024-12-26 | XR_ITS ---
Examinations: MRI Brain without intravenous contrast. MRA brain without intravenous contrast. MRA carotids without intravenous contrast 3-D vascular reconstructions Date and time of exam: December 26, 2024 0828 hours INDICATIONS: CT stroke alert December 25, 2024, onset focal neurologic deficit Technique: Multiple axial and sagittal images of the brain have been obtained MRA brain carotid images without contrast obtained, including 3-D postprocessing, vascular maximum intensity projection images Findings: [place] is not enlarged. The optic chiasm and infundibular stalk are not remarkable. Prepontine and interpeduncular cisterns are not enlarged. No localized enlargement of the medulla or yasmani. Fourth ventricle and cerebellar tonsils normal in position. Subacute hemorrhage is not seen. Fourth ventricle is midline. Mass in the cerebellopontine angle region is not evident. 7th and 8th nerve complexes exhibits symmetry. Globes are symmetrical with no retro-orbital mass. Increased white matter signal mild Diffusion-weighted images demonstrate no focus of restricted diffusion Mass-effect upon the ventricular system is not identified. MRA carotid images no critical carotid stenoses. MRA brain images no large vessel occlusions Impression: Negative for acute hemorrhage mass effect or midline shift No acute infarct No cerebral large vessel arterial occlusions
[2024-12-26 01:22] LABS: Anion Gap 14 (7-16); BUN/Creatinine Ratio 4 Ratio (12-20); Blood Urea Nitrogen 31 mg/dL (9-23); Calcium 9.2 mg/dL (8.3-10.6); Carbon Dioxide 24.5 mMol/L (20.0-31.0); Chloride 100 mMol/L (98-107); Creatinine (Component) 7.6 mg/dL (0.6-1.3); Estimated Creatinine Clearance 9.4 mL/min (>60); Glucose 108 mg/dL (74-106); Osmolality,Calculated 283 (275-295); Sodium 138 mMol/L (136-145); eGFR 8 See Note
[2024-12-26 01:25] LABS: Potassium 6.3 mMol/L (3.4-5.1)
[2024-12-26] MEDS: DEXTROSE 50%-WATER INJ 50 ML SYRINGE IVP (02:32)
[2024-12-26] MEDS: INSULIN HUM REGULAR 1 UNIT/0.01 ML (PER UNIT) 10 UNIT IV (02:33)
[2024-12-26] MEDS: ALBUTEROL RT 2.5 MG/3 ML NEBU INH (03:06)
[2024-12-26 06:07] LABS: Basophils # (Auto) 0.0 Thou/mm3 (0.0-0.2); Basophils % (Auto) 1 % (0-2.5); Eosinophils # (Auto) 0.1 Thou/mm3 (0.0-0.5); Eosinophils % (Auto) 2 % (0-10); Hematocrit 31.8 % (41.0-53.0); Hemoglobin 10.5 g/dL (13.5-16.0); Immature Granulocytes Auto 0.01 Thou/mm3 (0.00-0.00); Lymphocytes # (Auto) 0.6 Thou/mm3 (1.0-4.8); Lymphocytes % (Auto) 10 % (10-50); Mean Corpuscular HGB Conc 33.0 g/dl (31.0-37.0); Mean Corpuscular Hemoglobin 33.4 pg (25.0-35.0); Mean Corpuscular Volume 101 fL (80-100); Monocytes # (Auto) 0.6 Thou/mm3 (0.0-0.8); Monocytes % (Auto) 10 % (0-12); Neutrophils # (Auto) 4.7 Thou/mm3 (1.8-7.7); Neutrophils % (Auto) 77 % (37-80); Nucleated Red Blood Cell # 0.00 Thou/mm3 (0.00-0.00); Nucleated Red Blood Cell % 0 /100 WBC (0); Platelet Count 174 Thou/mm3 (140-440); RDW Standard Deviation 52.0 fL (35.1-43.9); Red Blood Count 3.14 Miln/mm3 (4.50-5.90); White Blood Count 6.1 Thou/mm3 (3.8-10.6)
[2024-12-26 06:42] LABS: Alanine Aminotransferase 28 U/L (10-49); Albumin, Serum 3.8 gm/dL (3.5-5.0); Albumin/Globulin Ratio 1.2 (1.2-2.2); Alkaline Phosphatase 84 U/L (46-116); Anion Gap 14 (7-16); Aspartate Amino Transferase 33 U/L (0-34); BUN/Creatinine Ratio 5 Ratio (12-20); Bilirubin,Total 0.6 mg/dL (0.3-1.2); Blood Urea Nitrogen 41 mg/dL (9-23); Calcium 9.4 mg/dL (8.3-10.6); Calcium (Corrected) 9.6 mg/dL (8.5-10.1); Carbon Dioxide 26.6 mMol/L (20.0-31.0); Chloride 100 mMol/L (98-107); Creatinine (Component) 8.2 mg/dL (0.6-1.3); Estimated Creatinine Clearance 9.0 mL/min (>60); Globulin 3.1 gm/dL (2.3-3.5); Glucose 76 mg/dL (74-106); Magnesium 2.3 mg/dL (1.6-2.6); Osmolality,Calculated 290 (275-295); Phosphorous 7.8 mg/dL (2.4-5.1); Potassium 5.9 mMol/L (3.4-5.1); Sodium 141 mMol/L (136-145); Total Protein 6.9 gm/dL (5.7-8.2); eGFR 7 See Note
--- NOTE | 2024-12-26 07:38 | ESPR_ITS ---
<Statement entered by Cornelius Russo MD - 12/26/24 18:28> Patient seen and examined at bedside, no acute overnight events. I discussed and supervised with the jewelry internship physician who took care of this patient. I personally saw and examined the patient. I agree with most of the assessment and plan. Patient doing well subjectively. No focal neurological deficit, currently at cognitive baseline. Received additional round of dialysis today, had some hypotension during session. BP otherwise mildly elevated, HTN emergency resolved. Will continue to monitor BP, adjust medications for better control. Plan of care discussed with attending Dr. Avila. Cornelius Russo MD PGY-2 Documentation for date of: 12/26/24 Subjective Subjective Interval history: No acute events overnight Stroke imaging workup negative, echo with normal ejection fraction no PE or no ASD PT evaluated signed off no need for further PT Exam Vital Signs Temp Pulse Resp BP Pulse Ox O2 Del Method O2 Flow Rate 97.7 F 80 18 132/69 H 94 L Nasal Cannula 2 12/26/24 04:00 12/26/24 06:00 12/26/24 04:00 12/26/24 04:00 12/26/24 04:00 12/25/24 12:01 12/25/24 12:01 24-hour vital signs reviewed Afebrile blood pressure has been labile soft at times elevated at others Satting well on room air Narrative Exam GENERAL: no acute distress, AAO x3, comfortably laying in bed HEENT: Head AT/ NC. Mucous membranes moist. one pupil bigger than the other (w hx of surgery to R eye) NECK: Supple, no lymphadenopathy, no carotid bruits. CARDIOVASCULAR: RRR. Normal S1/S2, No m/r/g. No pitting edema of bilateral LEs. RESPIRATORY: CTAB. No wheezing, rhonchi, crackles. GASTROINTESTINAL: Abdomen soft, non tender no palpable masses. Bowel sounds present MUSCULOSKELETAL:? No cyanosis or edema, no visible joint swelling. L arm fistula, palpable thrill wo signs of bleeding NEUROLOGICAL: CN II-XII grossly intact. No focal deficits. Sensation intact, symmetric.pt is confused, one large pupil hx of eye surgery on R know. Gait observed PSYCHIATRIC: Awake and alert, not agitated, normal mood and affect. SKIN: No obvious rashes, no jaundice, normal turgor. Objective Labs 12/27/24 04:46 12/27/24 04:46 Labs: Laboratory Results - last 24 hr 12/25/24 12/25/24 12/25/24 07:48 09:06 11:35 WBC 9.7 RBC 3.89 L Hgb 13.2 L Hct 39.8 L MCV 102 H MCH 33.9 MCHC 33.2 RDW Std Deviation 52.8 H Plt Count 242 Neut % (Auto) 72 Lymph % (Auto) 17 [place] % (Auto) 7 Eos % (Auto) 4 Baso % (Auto) 1 Neut # (Auto) 7.0 Lymph # (Auto) 1.7 [place] # (Auto) 0.6 Eos # (Auto) 0.4 Baso # (Auto) 0.1 Immature Gran # (Auto) 0.03 H Absolute Nucleated RBC 0.00 Immature Gran % 0 Nucleated RBC % 0 PT 11.2 INR 1.0 APTT 25.6 Sodium 140 Potassium 7.6 H* Chloride 101 Carbon Dioxide 21.2 Anion Gap 18 H BUN 70 H Creatinine 11.0 H* Estim Creat Clear Calc 6.5 L eGFR 5 L* BUN/Creatinine Ratio 6 L Glucose [address] Glu mg/dL 103 Hemoglobin A1c 5.2 Calculated Osmolality 304 H Calcium 9.2 Corrected Calcium 9.2 Phosphorus Magnesium 2.8 H Total Bilirubin 0.4 AST 60 H ALT 41 Alkaline Phosphatase 102 Troponin I 0.096 H* 0.173 H* B-Natriuretic Peptide 1075 H* Total Protein 7.2 Albumin 4.1 Globulin 3.1 Albumin/Globulin Ratio 1.3 Triglycerides 99 Cholesterol 160 LDL Cholesterol, Calc 102 HDL Cholesterol 38 L Cholesterol/HDL Ratio 4.2 TSH 5.67 H 12/25/24 12/25/24 12/25/24 16:42 19:50 22:28 WBC RBC Hgb Hct MCV MCH MCHC RDW Std Deviation Plt Count Neut % (Auto) Lymph % (Auto) [place] % (Auto) Eos % (Auto) Baso % (Auto) Neut # (Auto) Lymph # (Auto) [place] # (Auto) Eos # (Auto) Baso # (Auto) Immature Gran # (Auto) Absolute Nucleated RBC Immature Gran % Nucleated RBC % PT INR APTT Sodium 139 Potassium 5.8 H D Chloride 98 Carbon Dioxide 25.6 Anion Gap 15 BUN 37 H Creatinine 6.8 H* D Estim Creat Clear Calc 10.5 L eGFR 9 L* BUN/Creatinine Ratio 5 L Glucose [address] Glu mg/dL Hemoglobin A1c Calculated Osmolality 287 Calcium 9.7 Corrected Calcium Phosphorus Magnesium Total Bilirubin AST ALT Alkaline Phosphatase Troponin I 0.361 H* 0.262 H* B-Natriuretic Peptide Total Protein Albumin Globulin Albumin/Globulin Ratio Triglycerides Cholesterol LDL Cholesterol, Calc HDL Cholesterol Cholesterol/HDL Ratio TSH 12/26/24 12/26/24 00:35 05:10 WBC 6.1 RBC 3.14 L Hgb 10.5 L D Hct 31.8 L MCV 101 H MCH 33.4 MCHC 33.0 RDW Std Deviation 52.0 H Plt Count 174 D Neut % (Auto) 77 Lymph % (Auto) 10 [place] % (Auto) 10 Eos % (Auto) 2 Baso % (Auto) 1 Neut # (Auto) 4.7 Lymph # (Auto) 0.6 L [place] # (Auto) 0.6 Eos # (Auto) 0.1 Baso # (Auto) 0.0 Immature Gran # (Auto) 0.01 H Absolute Nucleated RBC 0.00 Immature Gran % 0 Nucleated RBC % 0 PT INR APTT Sodium 138 141 Potassium 6.3 H* D 5.9 H Chloride 100 100 Carbon Dioxide 24.5 26.6 Anion Gap 14 14 BUN 31 H 41 H Creatinine 7.6 H* D 8.2 H* D Estim Creat Clear Calc 9.4 L 9.0 L eGFR 8 L* 7 L* BUN/Creatinine Ratio 4 L 5 L Glucose [address] Glu mg/dL Hemoglobin A1c Calculated Osmolality 283 290 Calcium 9.2 9.4 Corrected Calcium 9.6 Phosphorus 7.8 H Magnesium 2.3 Total Bilirubin 0.6 AST 33 ALT 28 Alkaline Phosphatase 84 Troponin I B-Natriuretic Peptide Total Protein 6.9 Albumin 3.8 Globulin 3.1 Albumin/Globulin Ratio 1.2 Triglycerides Cholesterol LDL Cholesterol, Calc HDL Cholesterol Cholesterol/HDL Ratio TSH Quality Measures Quality Measures stroke Suspected type of Stroke: Unknown at this time Tenecteplase given: Reason(s) Tenecteplase not given: Uncontrolled BP, Unable to determine eligibility and Siezure at onset with post-ictal neuro impairment not given Rehab services: PT evaluation ordered and Speech Language Pathology eval ordered VTE Prophylaxis: pharmaceutical Antithrombotic by day 2:: ordered Statin ordered: <75 y/o high intensity dose Anticoagulation ordered for A-fib or flutter (current or hx): not indicated Assessment & Plan Assessment Current Active Medications: Generic Name Dose Route Start Last Admin Trade Name Freq PRN Reason Stop Dose Admin Acetaminophen 650 mg 12/25/24 15:04 Acetaminophen 325 Mg Tablet PO 01/24/25 15:03 Q6HR PRN FEVER >101 Atorvastatin Calcium 80 mg 12/25/24 21:00 12/25/24 20:19 Atorvastatin Calcium 20 Mg Tablet PO 01/24/25 20:59 Not Given HS JUN Clopidogrel Bisulfate 75 mg 12/25/24 20:00 12/25/24 20:19 Clopidogrel Bisulfate 75 Mg Tablet PO 01/24/25 19:59 Not Given QDAY JUN Heparin Sodium (Porcine) 5,000 unit 12/25/24 21:00 12/25/24 20:15 Heparin Sod Inj 5000 Unit/Ml Vial SC 01/08/25 20:59 5,000 unit Q12HR JUN Administration Hydralazine HCl 10 mg 12/25/24 18:12 Hydralazine Inj 20 Mg/Ml Vial IVP 12/27/24 18:11 Q30MIN PRN SBP > 220 Ondansetron HCl 4 mg 12/25/24 08:13 Ondansetron Inj 2 Mg/Ml Inj 2 Ml IVP 01/24/25 08:12 Q4HR PRN NAUSEA OR VOMITING Plan Mr. Paul is a 59-year-old gentleman with type 2 diabetes on insulin, hypertension, ESRD on dialysis(Tuesday) who has been receiving hemodialysis regularly, who presents to the emergency department for altered mental status found to have hypertensive emergency SBP to the 220s, stroke eval negative, continue on aspirin and Plavix 21 days given [id number] score 2, who is mental status improved post antihypertensives, and emergent hemodialysis x 2 pending management of labile blood pressures # ESRD on hemodialysis (TThSat) #Electrolyte deragement 2/2 missed HD -resolving following emergent HD 12/25 and 12/26 #Hyper Kalemia -resolved after HD #hyper magn #FIDELIA iso missed HD pt followed by senait, and has been on HD for the past 5 years, Patient's last hemodialysis session on Tuesday, missed today, consulted nephrology for stat HD today, Patient continued to have elevated potassium despite hemodialysis yesterday, emergent HD 12/26 Dx - daily CMP, mg, phos Tx - emergent HD 2x -relete electrolytes as needed # Encephalopathy secondary to hypertensive emergency #Hypertensive emergency pts AMS improved after iv labetalol. plan to maintain BP parameters for potetial stroke, see above. , BP well-controlled pressures intermittently soft however asymptomatic. Patient post hemodialysis x 2, given large volume shifts could be contributing to patient's labile blood pressure, evaluate tomorrow Dx - Every 4 hours vital checks - q4 vitals check Tx -One-time labetalol IV push in the ED - Plan to optimize antihypertensive medication tomorrow #Acute ischemic Stroke r/o Patient was not deemed a candidate for tPA because last known well was greater than 4.5 hours no focal neurological deficits, no wkness or facial droop. AMS likely 2/2 hypertensive emergency, resolved with labetalol. NIHSS score of 19 Dx * NCHCT-no acute intracranial findings * CTA head neck: Negative * Brain MRI, negative * Echo: Normal left ventricular size and function. Estimated EF at 55-60%. Grade I diastolic dysfunction. Normal RV size and systolic function. Mild to moderate MAC. Trace MR and TR.No pericardial effusion. * A1c: 5.2 * TSH: Elevated follow-up free T4 tomorrow * Lipid panel, Cholesterol 160, LDL 102, triglycerides 99 * Telemetry neurology consulted recommends; admission * In-house neurologist consulted: Dr. Miguel, appreciate recs - ASA 81 * Physical therapy signed off no PT recommended * Speech signed off #elevated troponin- downtrending Serial troponins were downtrending # Macrocytic anemia Initial hemoglobin 13.2, hematocrit 39.8, MCV 102 Dx - daily cbc Tx - CTM - transfuse if < 7 #HLD ASCVD 17.2% risk of cardiovascular event recommend high-dose statin -Continue atorvastatin 40 mg at bedtime Dispo: Home, management of labile blood pressures Diet: Full, speech signed off Bowel Reg: not indicated patient had bowel movement yesterday VTE ppx: hearin 5000 q12 GI ppx: Not indicated Code status: full Case discussed with my senior resident Dr. Russo Case discussed with my attending Dr. Margarita Sheffield MD PGY-1 Attending Provider Attestation/Addendum I attest that I was physically present for the evaluation, physical examination, lab and imaging review of the patient with the residents. I discussed the case with the residents and agree with the findings and plans of care as documented above. Terell Avila MD
--- NOTE | 2024-12-26 07:59 | EKG_ITS ---
[facility] Test Date: 2024-12-26 Pat Name: ARMAAN SEPULVEDA [facility] Gender: Male Inventory Planner: MIRTA : 1965 Requested By: Terell Avila Order Number: [id number] Reading MD: Terell Avila Measurements Intervals [place] Rate: 83 P: 46 CO: 149 QRS: -2 QRSD: 79 T: 130 QT: 396 QTc: 467 Interpretive Statements SINUS RHYTHM POSSIBLE LEFT ATRIAL ENLARGEMENT LEFT VENTRICULAR HYPERTROPHY AND ST-T CHANGE Compared to ECG 12/25/2024 08:26:23 No significant changes /store/S0/[id number].pdf
--- NOTE | 2024-12-26 08:15 | XR_ITS ---
Examination: CTA carotids with intravenous contrast CTA brain, head with intravenous contrast. 2-D sagittal, coronal reconstructions. 3-D reconstructions. Exam date and time: December 26, 2024 1021 hours INDICATIONS: Stroke alert, onset altered mental status today CTDI: vol (mGy) 21.4 DLP: (mGycm) 441 Technique: Multiple CTA axial brain, head carotid images post intravenous contrast injection 75 cc, [id number]. 2-D sagittal, coronal reconstructions. 3-D reconstructions, 3-D post processing including vascular maximum intensity projection images. Low dose protocols were performed. One or more of the following dose reduction techniques were used; automated exposure control, adjustment of the mA and/or KV according to patient size, use of iterative reconstruction technique. Findings: No significant common carotid carotid bifurcation or internal carotid artery stenoses Dominant left vertebral artery with no critical vertebral artery stenoses Intracranial vertebral arteries, basilar artery posterior cerebral branches fill with no large vessel occlusions Moderate calcification juxtasellar internal carotid arteries No occlusions M1 segments middle cerebral arteries middle cerebral artery trifurcation vessels are intercerebral arteries IMPRESSION: No significant neck arterial stenoses No cerebral large vessel arterial occlusions or thrombus
[2024-12-26] MEDS: ALBUTEROL/IPRATROPIUM (Duoneb) RT SOL 3 ML NEBU INH (08:16)
[2024-12-26 08:36] LABS: Free T4 (Free Thyroxine) 1.22 ng/dL (0.89-1.76)
--- NOTE | 2024-12-26 10:14 | PC.SS ---
Patient Delmar Hernandez is a 59 Year old male admitted for Stroke Hyperkalemia, ESRD, TTN Emerg. SS attempted to meet with patient at bedside to discuss discharge plan and verify demographic information, however patient was not in the room. SS contacted patient's , Betzy Hernandez who is his surrogate decision maker, . She reports they are not from this area and are in town visiting family. reports he is able to complete all ADL's independently. Patient does not utilize any source of DME to assist with ambulation. Pharmacy of choice is [facility]. At time of discharge patient will return back home, family will provide transportation. Next of kin: , Betzy Hernandez [phone] Discharge plan: Home
--- NOTE | 2024-12-26 10:27 | PD.RESPRO ---
Documentation for date of: 12/26/24 Subjective Subjective Interval history: Delmar Hernandez is 59 yr male with PMH of HTN, ESRD on HD T//Tue, T2DM presenting to [facility] ED today form home after family noticed him making choking like sound. Stroke workup was initiated upon arrival. LKW 2130 yesterday evening. NIHSS score by neuro tele was 19. At beside, he was AOx3 with no weakness. Nephrology was consulted for emergent HD. Patient has been on hemodialysis for about 5 years with product support rep from [facility]. States that he does not have much urine output at home and there is positive family history of kidney disease in his mother. She did require hemodialysis. Patient has resistant hypertension on three agents including hydralazine 75 mg TID, amlodipine 5mg BID, lisinopril 20 Mg BID with pressure ranging 150-160 at home. Blood pressure on arrival was 219/161, tachycardia 114, afebrile. Hemoglobin 13.2, MCV 102, sodium 140, hyperkalemia with potassium 7.6, AG 18, BUN 70, creatinine 11.0, GFR 5, glucose 192, calcium 9.2, magnesium 2.8, mildly elevated troponins 0.173, elevated BNP 1075. He does not appear to be fluid overloaded on exam. HD access site through left AV fistula. Fistula site no evidence of bleeding with palpable thrill. He denies any SOB, chest pain, headaches, lower extremity swelling. Nephrology was consulted for emergent HD. : Patient examined at bedside. was also present who stated that he seemed to be confused expressing concern that he was unable to remember getting any dialysis yesterday. was reassured that it may be due to stroke which primary care team will continue to workup. CT head was negative for any acute hemorrhage, echo was negative for PFO EF 55-60%, brain MRI pending. Today potassium slightly down trended to 5.9, creatinine 8.2, other electrolytes are stable. This morning he did receive insulin5 units x 1 and albuterol. Patient will receive additional dialysis session today. Hypertensive urgency has resolved with BP this morning 164/85. Exam Vital Signs Temp Pulse Resp BP Pulse Ox O2 Del Method O2 Flow Rate 97.9 F 77 20 164/85 H 99 Room Air 2 12/26/24 08:00 12/26/24 08:17 12/26/24 08:17 12/26/24 08:00 12/26/24 08:17 12/26/24 08:00 12/25/24 12:01 Narrative Exam General: Middle aged male, No acute distress, cooperative HEENT: NCAT, No JVD noted. Mucosa dry. Pupils are equal and reactive to light bilaterally Cardiovascular: Normal S1 and S2. Regular rate and rhythm. Respiratory: Lungs are clear to auscultation bilaterally. No wheezing or crackles heard. Abdomen: Soft, nontender, not distended, normal bowel sounds. Skin: Warm to touch, dry, no rashes noted Musculoskeletal: No gross injuries. Able to move all 4 extremities. No pitting edema, left AV fistula with palpable thrill Neuro: Alert and oriented x3. No focal neuro deficits. Psych: Normal affect and mood Objective Labs 12/26/24 05:10 12/26/24 13:49 Labs: Laboratory Results - last 24 hr 12/25/24 12/25/24 12/25/24 09:06 11:35 16:42 WBC RBC Hgb Hct MCV MCH MCHC RDW Std Deviation Plt Count Neut % (Auto) Lymph % (Auto) [place] % (Auto) Eos % (Auto) Baso % (Auto) Neut # (Auto) Lymph # (Auto) [place] # (Auto) Eos # (Auto) Baso # (Auto) Immature Gran # (Auto) Absolute Nucleated RBC Immature Gran % Nucleated RBC % Sodium Potassium Chloride Carbon Dioxide Anion Gap BUN Creatinine Estim Creat Clear Calc eGFR BUN/Creatinine Ratio Glucose Estimated Ave Glu mg/dL 103 Hemoglobin A1c 5.2 Calculated Osmolality Calcium Corrected Calcium Phosphorus Magnesium Total Bilirubin AST ALT Alkaline Phosphatase Troponin I 0.173 H* 0.361 H* Total Protein Albumin Globulin Albumin/Globulin Ratio Triglycerides 99 Cholesterol 160 LDL Cholesterol, Calc 102 HDL Cholesterol 38 L Cholesterol/HDL Ratio 4.2 TSH 5.67 H Free T4 12/25/24 12/25/24 12/26/24 19:50 22:28 00:35 WBC RBC Hgb Hct MCV MCH MCHC RDW Std Deviation Plt Count Neut % (Auto) Lymph % (Auto) [place] % (Auto) Eos % (Auto) Baso % (Auto) Neut # (Auto) Lymph # (Auto) [place] # (Auto) Eos # (Auto) Baso # (Auto) Immature Gran # (Auto) Absolute Nucleated RBC Immature Gran % Nucleated RBC % Sodium 139 138 Potassium 5.8 H D 6.3 H* D Chloride 98 100 Carbon Dioxide 25.6 24.5 Anion Gap 15 14 BUN 37 H 31 H Creatinine 6.8 H* D 7.6 H* D Estim Creat Clear Calc 10.5 L 9.4 L eGFR 9 L* 8 L* BUN/Creatinine Ratio 5 L 4 L Glucose 109 H D [address] Glu mg/dL Hemoglobin A1c Calculated Osmolality 287 283 Calcium 9.7 9.2 Corrected Calcium Phosphorus Magnesium Total Bilirubin AST ALT Alkaline Phosphatase Troponin I 0.262 H* Total Protein Albumin Globulin Albumin/Globulin Ratio Triglycerides Cholesterol LDL Cholesterol, Calc HDL Cholesterol Cholesterol/HDL Ratio TSH Free T4 12/26/24 05:10 WBC 6.1 RBC 3.14 L Hgb 10.5 L D Hct 31.8 L MCV 101 H MCH 33.4 MCHC 33.0 RDW Std Deviation 52.0 H Plt Count 174 D Neut % (Auto) 77 Lymph % (Auto) 10 [place] % (Auto) 10 Eos % (Auto) 2 Baso % (Auto) 1 Neut # (Auto) 4.7 Lymph # (Auto) 0.6 L [place] # (Auto) 0.6 Eos # (Auto) 0.1 Baso # (Auto) 0.0 Immature Gran # (Auto) 0.01 H Absolute Nucleated RBC 0.00 Immature Gran % 0 Nucleated RBC % 0 Sodium 141 Potassium 5.9 H Chloride 100 Carbon Dioxide 26.6 Anion Gap 14 BUN 41 H Creatinine 8.2 H* D Estim Creat Clear Calc 9.0 L eGFR 7 L* BUN/Creatinine Ratio 5 L Glucose [address] Glu mg/dL Hemoglobin A1c Calculated Osmolality 290 Calcium 9.4 Corrected Calcium 9.6 Phosphorus 7.8 H Magnesium 2.3 Total Bilirubin 0.6 AST 33 ALT 28 Alkaline Phosphatase 84 Troponin I Total Protein 6.9 Albumin 3.8 Globulin 3.1 Albumin/Globulin Ratio 1.2 Triglycerides Cholesterol LDL Cholesterol, Calc HDL Cholesterol Cholesterol/HDL Ratio TSH Free T4 1.22 Quality Measures Quality Measures stroke Suspected type of Stroke: Unknown at this time Tenecteplase given: Reason(s) Tenecteplase not given: Uncontrolled BP, Unable to determine eligibility and Siezure at onset with post-ictal neuro impairment not given Rehab services: PT evaluation ordered VTE Prophylaxis: mechanical Antithrombotic by day 2:: ordered Statin ordered: not ordered Anticoagulation ordered for A-fib or flutter (current or hx): ordered Assessment & Plan Assessment Current Active Medications: Generic Name Dose Route Start Last Admin Trade Name Freq PRN Reason Stop Dose Admin Acetaminophen 650 mg 12/25/24 15:04 Acetaminophen 325 Mg Tablet PO 01/24/25 15:03 Q6HR PRN FEVER >101 Aspirin 81 mg 12/26/24 09:00 Aspirin Ec 81 Mg Tabec PO 01/25/25 08:59 QDAY JUN Atorvastatin Calcium 80 mg 12/25/24 21:00 12/25/24 20:19 Atorvastatin Calcium 20 Mg Tablet PO 01/24/25 20:59 Not Given HS JUN Clopidogrel Bisulfate 75 mg 12/25/24 20:00 12/25/24 20:19 Clopidogrel Bisulfate 75 Mg Tablet PO 01/24/25 19:59 Not Given QDAY JUN Heparin Sodium (Porcine) 5,000 unit 12/25/24 21:00 12/25/24 20:15 Heparin Sod Inj 5000 Unit/Ml Vial SC 01/08/25 20:59 5,000 unit Q12HR JUN Administration Hydralazine HCl 10 mg 12/25/24 18:12 Hydralazine Inj 20 Mg/Ml Vial IVP 12/27/24 18:11 Q30MIN PRN SBP > 220 Latanoprost 1 drop 12/27/24 09:00 Latanoprost Op Madeline 0.005% 2.5 Ml Btl BOTH EYES 01/26/25 08:59 QDAY JUN Ondansetron HCl 4 mg 12/25/24 08:13 Ondansetron Inj 2 Mg/Ml Inj 2 Ml IVP 01/24/25 08:12 Q4HR PRN NAUSEA OR VOMITING Sevelamer Carbonate 800 mg 12/26/24 08:00 Sevelamer Carbonate 800 Mg Tablet PO 01/25/25 07:59 TIDWM JUN Plan Delmar Hernandez is 59 yr male with PMH of HTN, ESRD on HD T/, T2DM presenting to [facility] ED today form home after family noticed him making choking like sound. Stroke workup was initiated upon arrival. LKW 2130 yesterday evening. NIHSS score by neuro tele was 19. Nephrology was consulted for emergent HD. #ESRD on HD //Tue #Hypertensive emergency-resolved #Hypertension #Hyperkalemia Patient has been on hemodialysis for about 5 years with product support rep from [facility]. Patient visiting his family. Most likely hypertensive nephropathy but patient has denied getting biopsy in the past. Patient has resistant hypertension on three agents including hydralazine 75 mg TID, amlodipine 5mg BID, lisinopril 20 Mg BID with pressure ranging 150-160 at home. Hemoglobin 13.2, MCV 102, sodium 140, hyperkalemia with potassium 7.6, AG 18, BUN 70, creatinine 11.0, GFR 5, glucose 192, calcium 9.2, magnesium 2.8 on admission. BP on admission 219/161. -plan for HD session today -renally dose medications -renal diet -daily CMP #Work up acute CVA #T2DM -per primary care team The patient's management plan was discussed with my attending physician Dr. Coello. Theresa Stoner, PGY-2 Attending Provider Attestation/Addendum Patient seen and examined with resident physician Dr. Stoner. Note reviewed, agree with findings and recommendations. Patient visiting his family. From out of town. On dialysis for the last 5 years. He is a TTS schedule patient. Patient did receive dialysis yesterday. However due to persistent hyperkalemia extra session ordered today. Patient currently seen on dialysis. Tolerating dialysis without any problems. Hemodialysis for 3 hours, 2K, ultrafiltration 2 L, Epogen 6000, no heparin ordered. Plan of care discussed with the dialysis nurse. Please see dialysis flowsheet for further details.
--- NOTE | 2024-12-26 13:56 | PD.RESPRO ---
Documentation for date of: 12/26/24 Subjective Subjective Interval history: Patient was examined at bedside. Denies new symptoms. Patient reports complete return to baseline functioning and mentation. Exam Vital Signs Temp Pulse Resp BP Pulse Ox O2 Del Method O2 Flow Rate 97.1 F 79 18 88/59 L 96 Room Air 2 12/26/24 12:32 12/26/24 13:00 12/26/24 12:32 12/26/24 13:00 12/26/24 12:32 12/26/24 08:00 12/25/24 12:01 Narrative Exam General: No acute distress, well nourished Eye: PERRL, EOMI, normal conjunctiva, no scleral icterus HENT: Normocephalic, atraumatic, hearing intact to conversation at normal volume, moist oral mucosa Neck: Supple, non-tender, no JVD, no lymphadenopathy Lungs: Non-labored respirations, symmetric chest rise Heart: Peripheral pulses intact bilaterally Abdomen: Soft, non-tender, non-distended Musculoskeletal: Normal range of motion and strength Skin: Skin is warm, dry, no rashes or lesions. Fistula for HD on left forearm Psychiatric: Cooperative, appropriate mood and affect Neurologic: Mental status: Orientation: AO x 2 Communication: Patient is cooperative and can follow simple instructions Language: Speech fluent, normal rate and volume, comprehension intact Cranial nerves: CN II: Visual muniz intact CN III: R pupil > L pupil size (chronic anisocoria 2/2 glaucoma surgery 5 years ago) CN III, IV, : No gaze deviation, no nystagmus Horizontal pursuit: intact Vertical pursuit: intact Ptosis: none CN V: Facial sensation to light touch intact bilaterally at the forehead, cheeks, and jaw line CN VII: Face symmetric, no facial droop appreciated CN VIII: Able to hear and respond to conversation at normal volume, intact to finger rub CN IX, X: Palate elevation symmetric, uvula midline CN XI: Head turn and shoulder shrug strong, symmetric bilaterally CN XII: Normal tongue protrusion without deviation, no fasciculations Motor: Normal bulk and tone No atrophy No abnormal movements or fasciculations Muscle strength: Shoulder abduction: R 5/5 L 5/5 Elbow flexion: R 5/5 L 5/5 Elbow extension: R 5/5 L 5/5 Hip flexion: R 5/5 L 5/5 Hip extension: R 5/5 L 5/5 Knee flexion: R 5/5 L 5/5 Knee extension: R 5/5 L 5/5 Sensory: RUE: Light touch intact LUE: Light touch intact RLE: Light touch intact LLE: Light touch intact Reflexes: Triceps (C7-8): R 2+ L 2+ Patellae (L3-4): R 2+ L 2+ Cerebellum: RUE: No dysmetria (finger to nose) LUE: No dysmetria (finger to nose) Gait: Normal gait and stride length, normal pivot Objective Labs 12/26/24 05:10 12/26/24 13:49 Labs: Laboratory Results - last 24 hr 12/25/24 12/25/24 12/25/24 09:06 16:42 19:50 WBC RBC Hgb Hct MCV MCH MCHC RDW Std Deviation Plt Count Neut % (Auto) Lymph % (Auto) [place] % (Auto) Eos % (Auto) Baso % (Auto) Neut # (Auto) Lymph # (Auto) [place] # (Auto) Eos # (Auto) Baso # (Auto) Immature Gran # (Auto) Absolute Nucleated RBC Immature Gran % Nucleated RBC % Sodium 139 Potassium 5.8 H D Chloride 98 Carbon Dioxide 25.6 Anion Gap 15 BUN 37 H Creatinine 6.8 H* D Estim Creat Clear Calc 10.5 L eGFR 9 L* BUN/Creatinine Ratio 5 L Glucose [address] Glu mg/dL 103 Hemoglobin A1c 5.2 Calculated Osmolality 287 Calcium 9.7 Corrected Calcium Phosphorus Magnesium Total Bilirubin AST ALT Alkaline Phosphatase Troponin I 0.361 H* Total Protein Albumin Globulin Albumin/Globulin Ratio Triglycerides 99 Cholesterol 160 LDL Cholesterol, Calc 102 HDL Cholesterol 38 L Cholesterol/HDL Ratio 4.2 TSH 5.67 H Free T4 12/25/24 12/26/24 12/26/24 22:28 00:35 05:10 WBC 6.1 RBC 3.14 L Hgb 10.5 L D Hct 31.8 L MCV 101 H MCH 33.4 MCHC 33.0 RDW Std Deviation 52.0 H Plt Count 174 D Neut % (Auto) 77 Lymph % (Auto) 10 [place] % (Auto) 10 Eos % (Auto) 2 Baso % (Auto) 1 Neut # (Auto) 4.7 Lymph # (Auto) 0.6 L [place] # (Auto) 0.6 Eos # (Auto) 0.1 Baso # (Auto) 0.0 Immature Gran # (Auto) 0.01 H Absolute Nucleated RBC 0.00 Immature Gran % 0 Nucleated RBC % 0 Sodium 138 141 Potassium 6.3 H* D 5.9 H Chloride 100 100 Carbon Dioxide 24.5 26.6 Anion Gap 14 14 BUN 31 H 41 H Creatinine 7.6 H* D 8.2 H* D Estim Creat Clear Calc 9.4 L 9.0 L eGFR 8 L* 7 L* BUN/Creatinine Ratio 4 L 5 L Glucose [address] Glu mg/dL Hemoglobin A1c Calculated Osmolality 283 290 Calcium 9.2 9.4 Corrected Calcium 9.6 Phosphorus 7.8 H Magnesium 2.3 Total Bilirubin 0.6 AST 33 ALT 28 Alkaline Phosphatase 84 Troponin I 0.262 H* Total Protein 6.9 Albumin 3.8 Globulin 3.1 Albumin/Globulin Ratio 1.2 Triglycerides Cholesterol LDL Cholesterol, Calc HDL Cholesterol Cholesterol/HDL Ratio TSH Free T4 1.22 Quality Measures Quality Measures stroke Suspected type of Stroke: Unknown at this time Tenecteplase given: Reason(s) Tenecteplase not given: Uncontrolled BP, Unable to determine eligibility and Siezure at onset with post-ictal neuro impairment not given Rehab services: PT evaluation ordered VTE Prophylaxis: not indicated Antithrombotic by day 2:: not indicated (describe) Statin ordered: <75 y/o high intensity dose Anticoagulation ordered for A-fib or flutter (current or hx): not indicated Assessment & Plan Assessment Current Active Medications: Generic Name Dose Route Start Last Admin Trade Name Freq PRN Reason Stop Dose Admin Acetaminophen 650 mg 12/25/24 15:04 Acetaminophen 325 Mg Tablet PO 01/24/25 15:03 Q6HR PRN FEVER >101 Aspirin 81 mg 12/26/24 09:00 Aspirin Ec 81 Mg Tabec PO 01/25/25 08:59 QDAY JUN Atorvastatin Calcium 80 mg 12/25/24 21:00 12/25/24 20:19 Atorvastatin Calcium 20 Mg Tablet PO 01/24/25 20:59 Not Given HS JUN Clopidogrel Bisulfate 75 mg 12/25/24 20:00 12/25/24 20:19 Clopidogrel Bisulfate 75 Mg Tablet PO 01/24/25 19:59 Not Given QDAY JUN Heparin Sodium (Porcine) 5,000 unit 12/25/24 21:00 12/25/24 20:15 Heparin Sod Inj 5000 Unit/Ml Vial SC 01/08/25 20:59 5,000 unit Q12HR JUN Administration Hydralazine HCl 10 mg 12/25/24 18:12 Hydralazine Inj 20 Mg/Ml Vial IVP 12/27/24 18:11 Q30MIN PRN SBP > 220 Latanoprost 1 drop 12/26/24 21:00 Latanoprost Op Madeline 0.005% 2.5 Ml Btl BOTH EYES 01/25/25 20:59 HS JUN Ondansetron HCl 4 mg 12/25/24 08:13 Ondansetron Inj 2 Mg/Ml Inj 2 Ml IVP 01/24/25 08:12 Q4HR PRN NAUSEA OR VOMITING Sevelamer Carbonate 800 mg 12/26/24 08:00 Sevelamer Carbonate 800 Mg Tablet PO 01/25/25 07:59 TIDWM JUN Plan # Altered mental status, resolved LKW 12/24 at 21: 30 Initial presentation: Unresponsive, GCS 9. Glucose 147. SpO2 98% RA. Initial BP en route to hospital 166/94, BP on arrival 224/123. Managed with labetalol IV Troponin: 0.096 elevated--> 0.173, BNP elevated 1075 Coag panel WNL Triglycerides 99 WNL, cholesterol 160 WNL, LDL 102 WNL, HDL low 38 TSH 5.67 high, free T4 1.[address] head without contrast: Negative for acute hemorrhage, midline shift, mass effect. Poor quality CT CTA: negative for LVO, stenosis MR stroke protocol: Negative for acute hemorrhage, acute infarct, or LVO. Mild chronic white matter changes EKG: NSR, heart rate 77, QTc 498 --> NSR HR 83 QTc 467 DDx: hypertensive emergency, metabolic encephalopathy (ESRD on HD) AMS most likely secondary to hypertensive emergency as patient's symptoms resolved with BP management. Patient continues to have worsening FIDELIA on CKD requiring extra HD sessions, though his AMS has completely resolved. Plan: - BP management per primary - labetalol - Pending Spot EEG - ASA 81 mg daily, high-intensity statin (ASCVD 17.4% risk of cardiovascular event in next 10 years) # Hypertension Plan: - Management per primary # Type 2 diabetes mellitus Initial glucose 192 A1C 5.2 Plan: - Management per primary # ESRD on hemodialysis Patient's last hemodialysis session on Tuesday prior to hospitalization In ED: BUN 70, Cr 11 Nephrology on board Plan: - Management per primary, nephrology - HD # Macrocytic anemia Initial hemoglobin 13.2, hematocrit 39.8, MCV 102 TSH 5.67 high, free T4 1.22 WNL Total bili , AST high 60, ALT WNL, alk phos WNL Plan: - Pending B12, folate level - Management per primary - CTM with daily CBC Plan discussed with Dr. Lamont Schwartz, PGY1 Attending Provider Attestation/Addendum I personally have seen and examined the patient at the bedside and I agreed with the resident's findings, assessment and plan of care. Patient did not have any recurrence of cell symptoms after admission. Continue with better blood pressure control, aspirin and statin For now. Workup has been negative patient is stable from neurology standpoint for discharge
[2024-12-26] MEDS: ASPIRIN EC 81 MG TABEC PO (14:05)
[2024-12-26] MEDS: HEPARIN SOD INJ 5000 UNIT/ML VIAL SC ×2 (14:06→21:27)
[2024-12-26] MEDS: CLOPIDOGREL BISULFATE 75 MG TABLET PO (14:06)
--- NOTE | 2024-12-26 14:31 | PC.SS ---
SS follow up note; Neuro Rec's pending. Patient will discharge back home when medically cleared.
[2024-12-26 14:39] LABS: Alanine Aminotransferase 35 U/L (10-49); Albumin, Serum 4.3 gm/dL (3.5-5.0); Albumin/Globulin Ratio 1.3 (1.2-2.2); Alkaline Phosphatase 91 U/L (46-116); Anion Gap 13 (7-16); Aspartate Amino Transferase 39 U/L (0-34); BUN/Creatinine Ratio 4 Ratio (12-20); Bilirubin,Total 0.7 mg/dL (0.3-1.2); Blood Urea Nitrogen 25 mg/dL (9-23); Calcium 9.4 mg/dL (8.3-10.6); Calcium (Corrected) 9.4 mg/dL (8.5-10.1); Carbon Dioxide 25.3 mMol/L (20.0-31.0); Chloride 99 mMol/L (98-107); Creatinine (Component) 6.0 mg/dL (0.6-1.3); Estimated Creatinine Clearance 12.3 mL/min (>60); Globulin 3.2 gm/dL (2.3-3.5); Glucose 109 mg/dL (74-106); Osmolality,Calculated 279 (275-295); Potassium 4.8 mMol/L (3.4-5.1); Sodium 137 mMol/L (136-145); Total Protein 7.5 gm/dL (5.7-8.2); eGFR 10 See Note
[2024-12-26] MEDS: SEVELAMER CARBONATE 800 MG TABLET PO (18:21)
[2024-12-26] MEDS: LATANOPROST OP SOL 0.005% 2.5 ML BTL 1 DROP BOTH EYES (21:29)
[2024-12-26] MEDS: ATORVASTATIN CALCIUM 20 MG TABLET 80 MG PO (21:29)
[2024-12-27] VITALS (24 sets, daily range): BP systolic 99–189; BP diastolic 62–106; PULSE 72–90; RESP 12–18; TEMP 36.4–37.1; O2SAT 95–99; BMI 24.7
[2024-12-27] MEDS: hydrALAZINE INJ 20 MG/ML VIAL 10 MG IVP (01:30)
[2024-12-27 06:40] LABS: Basophils # (Auto) 0.1 Thou/mm3 (0.0-0.2); Basophils % (Auto) 1 % (0-2.5); Eosinophils # (Auto) 0.3 Thou/mm3 (0.0-0.5); Eosinophils % (Auto) 6 % (0-10); Hematocrit 33.7 % (41.0-53.0); Hemoglobin 11.2 g/dL (13.5-16.0); Immature Granulocytes Auto 0.01 Thou/mm3 (0.00-0.00); Lymphocytes # (Auto) 0.9 Thou/mm3 (1.0-4.8); Lymphocytes % (Auto) 17 % (10-50); Mean Corpuscular HGB Conc 33.2 g/dl (31.0-37.0); Mean Corpuscular Hemoglobin 34.4 pg (25.0-35.0); Mean Corpuscular Volume 103 fL (80-100); Monocytes # (Auto) 0.6 Thou/mm3 (0.0-0.8); Monocytes % (Auto) 10 % (0-12); Neutrophils # (Auto) 3.4 Thou/mm3 (1.8-7.7); Neutrophils % (Auto) 65 % (37-80); Nucleated Red Blood Cell # 0.00 Thou/mm3 (0.00-0.00); Nucleated Red Blood Cell % 0 /100 WBC (0); Platelet Count 189 Thou/mm3 (140-440); RDW Standard Deviation 50.7 fL (35.1-43.9); Red Blood Count 3.26 Miln/mm3 (4.50-5.90); White Blood Count 5.3 Thou/mm3 (3.8-10.6)
[2024-12-27 06:43] LABS: Folate > 24.00 ng/mL (>5.38); Vitamin B12 783 pg/mL (211-911)
[2024-12-27] MEDS: ONDANSETRON INJ 2 MG/ML INJ 2 ML 4 MG IVP (06:48)
[2024-12-27 07:05] LABS: Alanine Aminotransferase 27 U/L (10-49); Albumin, Serum 3.9 gm/dL (3.5-5.0); Albumin/Globulin Ratio 1.3 (1.2-2.2); Alkaline Phosphatase 84 U/L (46-116); Anion Gap 15 (7-16); Aspartate Amino Transferase 30 U/L (0-34); BUN/Creatinine Ratio 5 Ratio (12-20); Bilirubin,Total 0.4 mg/dL (0.3-1.2); Blood Urea Nitrogen 39 mg/dL (9-23); Calcium 9.0 mg/dL (8.3-10.6); Calcium (Corrected) 9.1 mg/dL (8.5-10.1); Carbon Dioxide 25.6 mMol/L (20.0-31.0); Chloride 99 mMol/L (98-107); Creatinine (Component) 8.0 mg/dL (0.6-1.3); Estimated Creatinine Clearance 9.7 mL/min (>60); Globulin 3.0 gm/dL (2.3-3.5); Glucose 104 mg/dL (74-106); Magnesium 2.2 mg/dL (1.6-2.6); Osmolality,Calculated 288 (275-295); Phosphorous 7.8 mg/dL (2.4-5.1); Potassium 5.7 mMol/L (3.4-5.1); Sodium 140 mMol/L (136-145); Total Protein 6.9 gm/dL (5.7-8.2); eGFR 7 See Note
--- NOTE | 2024-12-27 08:21 | PD.RESPRO ---
Documentation for date of: 12/27/24 Subjective Subjective Interval history: no acute events overnight. pt had 1x hydral given overnight for BP> 180 HD today per HD schedule T Th Sat Exam Vital Signs Temp Pulse Resp BP Pulse Ox O2 Del Method O2 Flow Rate 97.6 F 72 18 131/86 H 96 Room Air 2 12/27/24 07:45 12/27/24 08:15 12/27/24 07:45 12/27/24 08:15 12/27/24 07:45 12/27/24 07:44 12/26/24 16:00 vs reviewed, Narrative Exam GENERAL: no acute distress, AAO x3, comfortably laying in bed HEENT: Head AT/ NC. Mucous membranes moist. one pupil bigger than the other (w hx of surgery to R eye) NECK: Supple, no lymphadenopathy, no carotid bruits. CARDIOVASCULAR: RRR. Normal S1/S2, No m/r/g. No pitting edema of bilateral LEs. RESPIRATORY: CTAB. No wheezing, rhonchi, crackles. GASTROINTESTINAL: Abdomen soft, non tender no palpable masses. Bowel sounds present MUSCULOSKELETAL:? No cyanosis or edema, no visible joint swelling. L arm fistula, palpable thrill wo signs of bleeding NEUROLOGICAL: CN II-XII grossly intact. No focal deficits. Sensation intact, symmetric. one large pupil hx of eye surgery on R know. Gait observed PSYCHIATRIC: Awake and alert, not agitated, normal mood and affect. SKIN: No obvious rashes, no jaundice, normal turgor. Objective Labs 12/27/24 04:46 12/27/24 04:46 Labs: Laboratory Results - last 24 hr 12/26/24 12/26/24 12/27/24 05:10 13:49 04:46 WBC 5.3 RBC 3.26 L Hgb 11.2 L Hct 33.7 L MCV 103 H MCH 34.4 MCHC 33.2 RDW Std Deviation 50.7 H Plt Count 189 Neut % (Auto) 65 Lymph % (Auto) 17 [place] % (Auto) 10 Eos % (Auto) 6 Baso % (Auto) 1 Neut # (Auto) 3.4 Lymph # (Auto) 0.9 L [place] # (Auto) 0.6 Eos # (Auto) 0.3 Baso # (Auto) 0.1 Immature Gran # (Auto) 0.01 H Absolute Nucleated RBC 0.00 Immature Gran % 0 Nucleated RBC % 0 Sodium 137 140 Potassium 4.8 D 5.7 H D Chloride 99 99 Carbon Dioxide 25.3 25.6 Anion Gap 13 15 BUN 25 H 39 H Creatinine 6.0 H* D 8.0 H* D Estim Creat Clear Calc 12.3 L 9.7 L eGFR 10 L* 7 L* BUN/Creatinine Ratio 4 L 5 L Glucose 109 H 104 Calculated Osmolality 279 288 Calcium 9.4 9.0 Corrected Calcium 9.4 9.1 Phosphorus 7.8 H Magnesium 2.2 Total Bilirubin 0.7 0.4 AST 39 H 30 ALT 35 27 Alkaline Phosphatase 91 84 Total Protein 7.5 6.9 Albumin 4.3 D 3.9 Globulin 3.2 3.0 Albumin/Globulin Ratio 1.3 1.3 Vitamin B12 783 Folate > 24.00 Free T4 1.22 Quality Measures Quality Measures stroke Suspected type of Stroke: Unknown at this time Tenecteplase given: Reason(s) Tenecteplase not given: Uncontrolled BP, Unable to determine eligibility and Siezure at onset with post-ictal neuro impairment not given Rehab services: PT evaluation ordered and Speech Language Pathology eval ordered VTE Prophylaxis: pharmaceutical Antithrombotic by day 2:: not indicated (describe) Statin ordered: >75 y/o moderate or high intensity dose Anticoagulation ordered for A-fib or flutter (current or hx): not indicated Assessment & Plan Assessment Current Active Medications: Generic Name Dose Route Start Last Admin Trade Name Freq PRN Reason Stop Dose Admin Acetaminophen 650 mg 12/25/24 15:04 Acetaminophen 325 Mg Tablet PO 01/24/25 15:03 Q6HR PRN FEVER >101 Amlodipine Besylate 5 mg 12/27/24 09:00 Amlodipine Besylate 5 Mg Tablet PO 01/26/25 08:59 BID JUN Aspirin 81 mg 12/26/24 09:00 12/26/24 14:05 Aspirin Ec 81 Mg Tabec PO 01/25/25 08:59 81 mg QDAY JUN Administration Atorvastatin Calcium 80 mg 12/25/24 21:00 12/26/24 21:29 Atorvastatin Calcium 20 Mg Tablet PO 01/24/25 20:59 80 mg HS JUN Administration Clopidogrel Bisulfate 75 mg 12/25/24 20:00 12/26/24 14:06 Clopidogrel Bisulfate 75 Mg Tablet PO 01/24/25 19:59 75 mg QDAY JUN Administration Heparin Sodium (Porcine) 5,000 unit 12/25/24 21:00 12/26/24 21:27 Heparin Sod Inj 5000 Unit/Ml Vial SC 01/08/25 20:59 5,000 unit Q12HR JUN Administration Hydralazine HCl 10 mg 12/25/24 18:12 12/27/24 01:30 Hydralazine Inj 20 Mg/Ml Vial IVP 12/27/24 18:11 10 mg Q30MIN PRN Administration SBP > 220 Hydralazine HCl 25 mg 12/27/24 08:15 Hydralazine Hcl 25 Mg Tablet PO 01/26/25 08:14 TID JUN Latanoprost 1 drop 12/26/24 21:00 12/26/24 21:29 Latanoprost Op Madeline 0.005% 2.5 Ml Btl BOTH EYES 01/25/25 20:59 1 drop HS JUN Administration Ondansetron HCl 4 mg 12/25/24 08:13 12/27/24 06:48 Ondansetron Inj 2 Mg/Ml Inj 2 Ml IVP 01/24/25 08:12 4 mg Q4HR PRN Administration NAUSEA OR VOMITING Sevelamer Carbonate 800 mg 12/26/24 08:00 12/26/24 18:21 Sevelamer Carbonate 800 Mg Tablet PO 01/25/25 07:59 800 mg TIDWM JUN Administration Plan Mr. Paul is a 59-year-old gentleman with type 2 diabetes on insulin, hypertension, ESRD on dialysis(Tuesday) who has been receiving hemodialysis regularly, who presents to the emergency department for altered mental status found to have hypertensive emergency SBP to the 220s, stroke eval negative, continue on aspirin and Plavix 21 days given [id number] score 2, who is mental status improved post antihypertensives, and emergent hemodialysis x 2, pt had HD today per usual dialysis schedule and pending discharge tomorrow now that HTN medications have been optimized per nephro recs, given hx of hypertensive emergency and labile BP while inpatient. # ESRD on hemodialysis (TThSat) #Electrolyte deragement 2/2 missed HD -resolving following emergent HD 12/25 and 12/26 #Hyper Kalemia -resolved after HD #hyper magn #FIDELIA iso missed HD pt followed by senait, and has been on HD for the past 5 years, Patient's last hemodialysis session on Tuesday, missed today, consulted nephrology for stat HD today, Patient continued to have elevated potassium despite hemodialysis yesterday, emergent HD 12/26 Dx - daily CMP, mg, phos Tx - emergent HD 2x -relete electrolytes as needed # Encephalopathy secondary to hypertensive emergency #Hypertensive emergency #Essential HTN pts AMS improved after iv labetalol. plan to maintain BP parameters for potetial stroke, see above. , BP well-controlled pressures intermittently soft however asymptomatic. Patient post hemodialysis x 3, given large volume shifts could be contributing to patient's labile blood pressure, appreciate nephro guidance regarding htn meds Dx - Every 4 hours vital checks - q4 vitals check Tx -One-time labetalol IV push in the ED - appreciate nephro recs, regarding anti htn meds - d/c home lisinopril - cont home hydralazine 25 mg TID - cont home amlodipine 5 mg BID #Acute ischemic Stroke r/o Patient was not deemed a candidate for tPA because last known well was greater than 4.5 hours no focal neurological deficits, no wkness or facial droop. AMS likely 2/2 hypertensive emergency, resolved with labetalol. NIHSS score of 19 Dx NCHCT-no acute intracranial findings CTA head neck: Negative Brain MRI, negative Echo: Normal left ventricular size and function. Estimated EF at 55-60%. Grade I diastolic dysfunction. Normal RV size and systolic function. Mild to moderate MAC. Trace MR and TR.No pericardial effusion. A1c: 5.2 TSH: Elevated follow-up free T4 tomorrow Lipid panel, Cholesterol 160, LDL 102, triglycerides 99 Telemetry neurology consulted recommends; admission In-house neurologist consulted: Dr. Miguel, appreciate recs- ASA 81 Physical therapy signed off no PT recommended Speech signed off #elevated troponin- resolved Serial troponins were downtrending # Macrocytic anemia Initial hemoglobin 13.2, hematocrit 39.8, MCV 102 Dx - daily cbc Tx - CTM - transfuse if < 7 #HLD ASCVD 17.2% risk of cardiovascular event recommend high-dose statin -Continue atorvastatin 40 mg at bedtime Dispo: Home, PT signed off, no further PT indicated , plan for discharge tomorrow. Diet: Full, speech signed off Bowel Reg: not indicated patient had bowel movement yesterday VTE ppx: hearin 5000 q12 GI ppx: Not indicated Code status: full Case discussed with my senior resident Dr. Tripp Case discussed with my attending Dr. Ermelinda Sheffield MD PGY-1
[2024-12-27] MEDS: ASPIRIN EC 81 MG TABEC PO (11:11)
[2024-12-27] MEDS: CLOPIDOGREL BISULFATE 75 MG TABLET PO (11:12)
[2024-12-27] MEDS: SEVELAMER CARBONATE 800 MG TABLET PO (11:12)
[2024-12-27] MEDS: HEPARIN SOD INJ 5000 UNIT/ML VIAL SC (11:13)
--- NOTE | 2024-12-27 11:26 | ESPR_ITS ---
Documentation for date of: 12/27/24 Subjective Subjective Interval history: Delmar Hernandez is 59 yr male with PMH of HTN, ESRD on HD T//Tue, T2DM presenting to [facility] ED today form home after family noticed him making choking like sound. Stroke workup was initiated upon arrival. LKW 2130 yesterday evening. NIHSS score by neuro tele was 19. At beside, he was AOx3 with no weakness. Nephrology was consulted for emergent HD. Patient has been on hemodialysis for about 5 years with [facility] from [place]. States that he does not have much urine output at home and there is positive family history of kidney disease in his mother. She did require hemodialysis. Patient has resistant hypertension on three agents including hydralazine 75 mg TID, amlodipine 5mg BID, lisinopril 20 Mg BID with pressure ranging 150-160 at home. Blood pressure on arrival was 219/161, tachycardia 114, afebrile. Hemoglobin 13.2, MCV 102, sodium 140, hyperkalemia with potassium 7.6, AG 18, BUN 70, creatinine 11.0, GFR 5, glucose 192, calcium 9.2, magnesium 2.8, mildly elevated troponins 0.173, elevated BNP 1075. He does not appear to be fluid overloaded on exam. HD access site through left AV fistula. Fistula site no evidence of bleeding with palpable thrill. He denies any SOB, chest pain, headaches, lower extremity swelling. Nephrology was consulted for emergent HD. : Patient examined at bedside. was also present who stated that he seemed to be confused expressing concern that he was unable to remember getting any dialysis yesterday. was reassured that it may be due to stroke which primary care team will continue to workup. CT head was negative for any acute hemorrhage, echo was negative for PFO EF 55-60%, brain MRI pending. Today potassium slightly down trended to 5.9, creatinine 8.2, other electrolytes are stable. This morning he did receive insulin5 units x 1 and albuterol. Patient will receive additional dialysis session today. Hypertensive urgency has resolved with BP this morning 164/85. 12/27/24: Patient at seen and examined at bedside. No acute overnight events. Patient is alert and oriented x3, with no confusion. Received dialysis today. Patient feels well and ready to go home. Exam Vital Signs Temp Pulse Resp BP Pulse Ox O2 Del Method O2 Flow Rate 97.6 F 78 18 145/85 H 96 Room Air 2 12/27/24 10:46 12/27/24 11:12 12/27/24 10:46 12/27/24 11:12 12/27/24 10:46 12/27/24 07:44 12/26/24 16:00 Narrative Exam GENERAL: AOx?, no acute distress HEENT: NC/AT, mucous membranes moist, bilateral sclera anicteric CARDIOVASCULAR: regular rate and rhythm, S1/S2 present, no murmurs appreciated PULMONARY: clear to auscultation bilaterally, no rales/rhonchi/wheezes ABDOMINAL: soft, non-tender, non-distended, no rebound/guarding, bowel sounds present EXTREMITIES: no peripheral edema, left AV fistula with palpable thrill SKIN: warm and dry, intact, no rashes NEURO: CN II-XII grossly intact, no focal deficits, alert, following commands Objective Labs 12/27/24 04:46 12/27/24 04:46 Labs: Laboratory Results - last 24 hr 12/26/24 12/27/24 13:49 04:46 WBC 5.3 RBC 3.26 L Hgb 11.2 L Hct 33.7 L MCV 103 H MCH 34.4 MCHC 33.2 RDW Std Deviation 50.7 H Plt Count 189 Neut % (Auto) 65 Lymph % (Auto) 17 [place] % (Auto) 10 Eos % (Auto) 6 Baso % (Auto) 1 Neut # (Auto) 3.4 Lymph # (Auto) 0.9 L [place] # (Auto) 0.6 Eos # (Auto) 0.3 Baso # (Auto) 0.1 Immature Gran # (Auto) 0.01 H Absolute Nucleated RBC 0.00 Immature Gran % 0 Nucleated RBC % 0 Sodium 137 140 Potassium 4.8 D 5.7 H D Chloride 99 99 Carbon Dioxide 25.3 25.6 Anion Gap 13 15 BUN 25 H 39 H Creatinine 6.0 H* D 8.0 H* D Estim Creat Clear Calc 12.3 L 9.7 L eGFR 10 L* 7 L* BUN/Creatinine Ratio 4 L 5 L Glucose 109 H 104 Calculated Osmolality 279 288 Calcium 9.4 9.0 Corrected Calcium 9.4 9.1 Phosphorus 7.8 H Magnesium 2.2 Total Bilirubin 0.7 0.4 AST 39 H 30 ALT 35 27 Alkaline Phosphatase 91 84 Total Protein 7.5 6.9 Albumin 4.3 D 3.9 Globulin 3.2 3.0 Albumin/Globulin Ratio 1.3 1.3 Vitamin B12 783 Folate > 24.00 Quality Measures Quality Measures stroke Suspected type of Stroke: Unknown at this time Tenecteplase given: Reason(s) Tenecteplase not given: Uncontrolled BP, Unable to determine eligibility and Siezure at onset with post-ictal neuro impairment not given Rehab services: PT evaluation ordered VTE Prophylaxis: pharmaceutical Antithrombotic by day 2:: ordered Statin ordered: <75 y/o high intensity dose Anticoagulation ordered for A-fib or flutter (current or hx): not indicated Assessment & Plan Assessment Current Active Medications: Generic Name Dose Route Start Last Admin Trade Name Freq PRN Reason Stop Dose Admin Acetaminophen 650 mg 12/25/24 15:04 Acetaminophen 325 Mg Tablet PO 01/24/25 15:03 Q6HR PRN FEVER >101 Amlodipine Besylate 5 mg 12/27/24 09:00 12/27/24 11:11 Amlodipine Besylate 5 Mg Tablet PO 01/26/25 08:59 5 mg BID JUN Administration Aspirin 81 mg 12/26/24 09:00 12/27/24 11:11 Aspirin Ec 81 Mg Tabec PO 01/25/25 08:59 81 mg QDAY JUN Administration Atorvastatin Calcium 80 mg 12/25/24 21:00 12/26/24 21:29 Atorvastatin Calcium 20 Mg Tablet PO 01/24/25 20:59 80 mg HS JUN Administration Clopidogrel Bisulfate 75 mg 12/25/24 20:00 12/27/24 11:12 Clopidogrel Bisulfate 75 Mg Tablet PO 01/24/25 19:59 75 mg QDAY JUN Administration Heparin Sodium (Porcine) 5,000 unit 12/25/24 21:00 12/27/24 11:13 Heparin Sod Inj 5000 Unit/Ml Vial SC 01/08/25 20:59 5,000 unit Q12HR JUN Administration Hydralazine HCl 10 mg 12/25/24 18:12 12/27/24 01:30 Hydralazine Inj 20 Mg/Ml Vial IVP 12/27/24 18:11 10 mg Q30MIN PRN Administration SBP > 220 Hydralazine HCl 25 mg 12/27/24 08:15 12/27/24 11:12 Hydralazine Hcl 25 Mg Tablet PO 01/26/25 08:14 25 mg TID JUN Administration Latanoprost 1 drop 12/26/24 21:00 12/26/24 21:29 Latanoprost Op Madeline 0.005% 2.5 Ml Btl BOTH EYES 01/25/25 20:59 1 drop HS JUN Administration Ondansetron HCl 4 mg 12/25/24 08:13 12/27/24 06:48 Ondansetron Inj 2 Mg/Ml Inj 2 Ml IVP 01/24/25 08:12 4 mg Q4HR PRN Administration NAUSEA OR VOMITING Sevelamer Carbonate 800 mg 12/26/24 08:00 12/27/24 11:12 Sevelamer Carbonate 800 Mg Tablet PO 01/25/25 07:59 800 mg TIDWM JUN Administration Plan Delmar Hernandez is 59 yr male with PMH of HTN, ESRD on HD T//Tue, T2DM presenting to [facility] ED today form home after family noticed him making choking like sound. Stroke workup was initiated upon arrival. LKW 2130 yesterday evening. NIHSS score by neuro tele was 19. Nephrology was consulted for emergent HD. #ESRD on HD T//Tue #Hypertensive emergency-resolved #Hypertension #Hyperkalemia Patient has been on hemodialysis for about 5 years with [facility] from [place]. Patient visiting his family. Most likely hypertensive nephropathy but patient has denied getting biopsy in the past. Patient has resistant hypertension on three agents including hydralazine 75 mg TID, amlodipine 5mg BID, lisinopril 20 Mg BID with pressure ranging 150-160 at home. Hemoglobin 13.2, MCV 102, sodium 140, hyperkalemia with potassium 7.6, AG 18, BUN 70, creatinine 11.0, GFR 5, glucose 192, calcium 9.2, magnesium 2.8 on admission. BP on admission 219/161. Per primary team, BP drops during dialysis. Recommend to discontinue lisinopril outpatient. HD 12/25, 12/26, 12/27 (-1.4L), -HD today -Discontinue hydralazine for BP drops during HD -renally dose medications -renal diet #Work up acute CVA #T2DM Management per primary care team The patient's management plan was discussed with my attending physician Dr. Coello. Beckie Muñiz, DO Internal Medicine PGY-1 Attending Provider Attestation/Addendum Patient seen and examined with resident physician Dr. Muñiz. note reviewed, agree with findings and recommendations. Patient currently seen on dialysis. Tolerating dialysis without any problems. Hemodialysis for 3 hours, 2K, ultrafiltration 2-3 L, Epogen 6000, no heparin ordered. Plan of care discussed with the dialysis nurse. Please see dialysis flowsheet for further details. Patient will be discharged home today. DC lisinopril due to persistent hyperkalemia. Will be going home on [place]
--- NOTE | 2024-12-27 18:43 | ESDS_ITS ---
<Statement entered by Clara Wadsworth DO - 12/29/24 08:55> I, Clara Wadsworth DO, attest that I was physically present for the lerner portions of the service and evaluated the patient with the resident and I reviewed and discussed the case with the resident and agree with the resident's findings and plans of care as documented above <Statement entered by Dank Tripp MD - 12/27/24 18:45> I discussed and supervised with the human resources intern physician who took care of this patient. I personally saw and examined the patient. I agree with most of the assessment and plan. Disclaimer: Despite multiple revisions, due to the dictation software being used, the document bellow may not be free of grammatical errors including phonetic/typographic errors. However, this does not deter from our commitment to providing health care in the patient's best interest in mind. Plan of care discussed with attending Physician Dr. Ermelinda Tripp MD PGY-3 Planned Discharge Date 12/27/24 DS: Providers Provider Date of admission: 12/25/24 14:02 Primary care physician: Physician No Primary/Family Admitting Provider: Terell Avila MD Attending Provider on Admission: Terell Avila MD Consults: 12/25/24 08:13 Consult to Neurology / Tele-Neurology Routine Comment: Consulting Provider: [facility] 12/25/24 14:01 Consult to Nephrology Stat Comment: Consulting Provider: Aj Coello 12/25/24 14:02 Consult to Neurology / Tele-Neurology Routine Comment: Consulting Provider: Harjit Miguel 12/25/24 15:07 Referral Physical Therapy Routine Comment: Physician Instructions: Instructions: stroke r/o evaluation 12/25/24 15:08 Referral Speech Therapy Routine Comment: Attending Provider on DC: Dr. Wadsworth Discharging Provider: Karine Sheffield, DS: Diagnosis Problem List Completed Was Problem List Reviewed/Reconciled?: Yes Hospital Course Hospital Course Hospital course: Hospital Course Mr. Paul is a 59-year-old gentleman with type 2 diabetes on insulin, hypertension, ESRD on dialysis(Tuesday) who has been receiving hemodialysis regularly, who presents to the emergency department for altered mental status found to have hypertensive emergency SBP to the 220s following BP control with labetalol pt was mentating appropriately. Pt underwent full stroke eval with NCHCT, CTA head and neck, MRI brain, ECHO and neuro consult, all workup was negative, PT signed off, Speech signed off, Neuro reccomended continue on aspirin 81 mg 21 days. Nephro consulted for electrolyte derrangements, pt recieved HD on 7.17, 12/26, 7.15 given his electrolyte derrangements. Modifications were made to his home medications, see discharge instructions. Patient stable and medically cleared for discharge Diagnoses #Encephalopathy secondary to hypertensive emergency- resolved #Hypertensive emergency #ESRD on HD #FIDELIA #Anemia, Macrocytic # HLD Discharge instructions We stopped your furosemide and lisinopril due high potassium seen in your labs and dangerous for your heart. Continue amlodipine 5 mg twice a day and hydralazine 25 mg tid daily. Do not take the hydralizine if your systolic blood pressure is less than 80 or your diastolic blood pressure is less than 60. Take [place] once a day as directed by dialysis unit Continue your hemodialysis as per schedule Take all other medications as prescribed Take asprin once daily in morning and atorvastatin 80 mg at night for prevention of stroke Follow up with your PCP as outpatient within a week In case of emergency call 911 or come back to the ED Case discussed with my senior resident Dr. Tripp Case discussed with my attending Dr. Ermelinda Sheffield MD PGY-1 Status at Discharge Functional status at discharge: independent ambulation Time Spent with Patient Time attestation: Total time spent providing and/or coordinating discharge services: Time spent: Greater than 30 minutes Quality: Stroke Pt Provided Written Stroke Discharge Instructions: Yes Exam Vital Signs Temp Pulse Resp BP Pulse Ox O2 Del Method O2 Flow Rate 98.3 F 90 16 148/95 H 96 Room Air 2 12/27/24 11:57 12/27/24 12:00 12/27/24 11:57 12/27/24 11:57 12/27/24 10:46 12/27/24 11:57 12/26/24 16:00 Narrative Exam GENERAL: no acute distress, AAO x3, comfortably laying in bed HEENT: Head AT/ NC. Mucous membranes moist. one pupil bigger than the other (w hx of surgery to R eye) NECK: Supple, no lymphadenopathy, no carotid bruits. CARDIOVASCULAR: RRR. Normal S1/S2, No m/r/g. No pitting edema of bilateral LEs. RESPIRATORY: CTAB. No wheezing, rhonchi, crackles. GASTROINTESTINAL: Abdomen soft, non tender no palpable masses. Bowel sounds present MUSCULOSKELETAL:? No cyanosis or edema, no visible joint swelling. L arm fistula, palpable thrill wo signs of bleeding NEUROLOGICAL: CN II-XII grossly intact. No focal deficits. Sensation intact, symmetric.pt is confused, one large pupil hx of eye surgery on R know. Gait observed PSYCHIATRIC: Awake and alert, not agitated, normal mood and affect. SKIN: No obvious rashes, no jaundice, normal turgor. Discharge Plan Plan Patient Disposition: HOME (Self Care) Care Plan Goals: Suspendimos galicia furosemida y lisinopril debido a un nivel alto de potasio en mikki an?lisis, lo cual es peligroso para galicia coraz?n. Contin?e con 5 mg de amlodipino dos veces al d?a y 25 mg de hidralazina jenaro veces al d?a. No tome hidralizina si galicia presi?n arterial sist?lica es inferior a 80 o galicia presi?n arterial diast?lica es inferior a 60. [place] mika vez al d?a seg?n las indicaciones de la unidad de di?lisis. Contin?e con galicia hemodi?lisis seg?n el horario. [place] todos los dem?s medicamentos seg?n lo prescrito. [place] aspirina mika vez al d?a por la ma?[place] y 80 mg de atorvastatina por la noche para prevenir un accidente cerebrovascular. Consulte con galicia m?dico de cabecera isa paciente ambulatorio dentro de mika semana. En peggy de emergencia, llame al 911 o regrese a urgencias. We stopped your furosemide and lisinopril due high potassium seen in your labs and dangerous for your heart. Continue amlodipine 5 mg twice a day and hydralazine 25 mg tid daily. Do not take the hydralizine if your systolic blood pressure is less than 80 or your diastolic blood pressure is less than 60. Take [place] once a day as directed by dialysis unit Continue your hemodialysis as per schedule Take all other medications as prescribed Take asprin once daily in morning and atorvastatin 80 mg at night for prevention of stroke Follow up with your PCP as outpatient within a week In case of emergency call 911 or come back to the ED Prescriptions/Referrals Prescriptions/Med Rec: New aspirin 81 mg Tablet,Delayed Release (Dr/Ec) 81 mg PO QDAY Qty: 90 0RF atorvastatin 80 mg tablet 80 mg PO HS Qty: 90 0RF sevelamer carbonate 800 mg Tablet 800 mg PO TIDWM Qty: 90 0RF hydralazine 25 mg tablet 25 mg PO TID Qty: 90 0RF Rx Instructions: Hold if SBP below 80 and DBP below 60 mmhg patiromer calcium sorbitex 8.4 gram powder in packet 8.4 g PO QDAY Qty: 30 0RF Rx Instructions: managed by dialysis unit Continued latanoprost 0.005 % drops 1 drp Right eye BID dorzolamide-timolol 22.3-6.8 mg/mL drops OPHTHALMIC (EYE) amlodipine 5 mg tablet 5 mg PO BID Nephro-Rodolfo 0.8 mg tablet 1 tab PO QDAY Rx Instructions: Take 1 tablet(s) by mouth once a day. (On dialysis days take after dialysis treatment.) Discontinued hydralazine 25 mg tablet 25 mg PO TID lisinopril 20 mg tablet 20 mg PO BID furosemide 80 mg tablet 80 mg PO BID Referrals: No Primary/Family,Physician [Primary Care Provider] - Patient/Caregiver Discharge Instructions Education Materials: Symptoms of Stroke, Kidney Disease Reducing Potassium, Hypertension Stroke Link, Discharge Instructions for Stroke, Risk Factors for Stroke Print Language: American Stand Alone Forms: Rossy Award Info., Patient Portal Info Letter Discharge Order Discharge Orders: Discharge (Routine); Ordered 12/27/24 Ordered By: Dank Tripp Quality Discharge Quality Measures VTE prophylaxis
== END 2024-12-27 14:32 | disposition home or self-care (01) | DRG 304 ==
LOC: SERX 13:00 → SERHOLD 14:45 → S2NX 16:20 → S3NX 12-27 06:43
PROVIDERS: Nurse Practitioner Primary Care; Admitting Provider Student in an Organized Health Care Education/Training Program; Emergency Provider Emergency Medicine; Visit Provider Student in an Organized Health Care Education/Training Program
DX: I16.1 Hypertensive emergency (principal); N18.6 End stage renal disease; G93.40 Encephalopathy, unspecified; N17.9 Acute kidney failure, unspecified; Z99.2 Dependence on renal dialysis; E11.22 Type 2 diabetes mellitus with diabetic chronic kidney disease; E87.5 Hyperkalemia; R79.89 Other specified abnormal findings of blood chemistry; E78.5 Hyperlipidemia, unspecified; D53.9 Nutritional anemia, unspecified; I12.0 Hypertensive chronic kidney disease with stage 5 chronic kidney disease or end stage renal disease; I25.10 Atherosclerotic heart disease of native coronary artery without angina pectoris; Z79.02 Long term (current) use of antithrombotics/antiplatelets; Z79.4 Long term (current) use of insulin; Z79.82 Long term (current) use of aspirin; Z79.899 Other long term (current) drug therapy; I1A.0 Resistant hypertension
CPT/HCPCS: 36415; 70450; 70496; 70498; 70544; 71045; 80048; 80053; 80061; 80307; 81001; 82607; 82746; 83036; 83735; 83880; 84100; 84439; 84443; 84484; 85025; 85610; 85730; 87081; 87086; 92610; 93005; 93306; 94640; 94644; 95816; 96374; 97162; A4649; A9270; J0360; J0612; J1644; J1815; J2405; J3490; Q9967; J1920